=== PATIENT | male | born 1970 | race Caucasian/White ===

== ENCOUNTER 2022-09-02 08:44 | Outpatient (CLI) | payer BC, SELFPAY ==
[2022-09-02 14:01] LABS: Basophils Absolute Auto 0.05 K/uL (0.00-0.30); Basophils Percent Auto 0.9 % (0.0-3.0); Eosinophils Absolute Auto 0.15 K/uL (0.00-0.50); Eosinophils Percent Auto 2.6 % (0.0-7.0); Hematocrit 42.1 % (37.0-53.0); Hemoglobin* 13.5 gm/dL (13.5-17.5); Lymphocytes Absolute Auto 1.88 K/uL (0.90-2.90); Lymphocytes Percent Auto 33.1 % (20-44); Mean Corpuscular HGB Conc 32 gm/dL (32-36); Mean Corpuscular Hemoglobin 31 pg (26-34); Mean Corpuscular Volume 97 fL (80-100); Neutrophils Absolute Auto 3.03 K/uL (1.7-7.0); Neutrophils Percent Auto 53.4 % (42.0-72.0); Platelet Count* 380 K/uL (140-440); RDW Coefficient of Variation % 12.2 % (11.5-15.5); Red Blood Count 4.35 m/uL (4.30-5.90); White Blood Count* 5.68 K/uL (4.50-11.00)
[2022-09-02 14:05] LABS: Slide Review Reflex No
[2022-09-02 14:49] LABS: Chloride* 105 mmol/L (96-114); Potassium* 4.2 mmol/L (3.6-5.1); Sodium* 140 mmol/L (135-149)
[2022-09-02 14:52] LABS: Blood Urea Nitrogen* 22 mg/dL (7-30); Carbon Dioxide* 28 mmol/L (20-32); Estimated Glomerular Filt Rate 91 ml/min
[2022-09-02 14:53] LABS: Calcium* 9.4 mg/dL (8.4-10.6); Glucose* 89 mg/dL (60-115)
[2022-09-02 14:57] LABS: NT Pro B Type NatriureticPept* 177 PG/mL (0-125)
== END 2022-09-02 08:45 | disposition home or self-care (01) ==
PROVIDERS: PCP Family Medicine; Visit Provider Family Medicine
DX: Z01.818 Encounter for other preprocedural examination (principal); I42.9 Cardiomyopathy, unspecified; I50.9 Heart failure, unspecified; I10 Essential (primary) hypertension
CPT/HCPCS: 80048; 83880; 85025

== ENCOUNTER 2022-09-08 09:55 | Outpatient (CLI) | payer BC, SELFPAY ==
[2022-09-08 14:40] LABS: SARS PCR* Negative SARS-CoV-2 (Negative)
== END 2022-09-08 09:56 | disposition home or self-care (01) ==
LOC: FBOREF 09:56
PROVIDERS: PCP Family Medicine; Visit Provider Family Medicine
DX: Z20.822 Contact with and (suspected) exposure to COVID-19 (principal)
CPT/HCPCS: 87635

== ENCOUNTER 2023-01-07 14:18 | Outpatient (CLI) | payer BC, SELFPAY | END 2023-01-07 14:19 | disposition home or self-care (01) | PROVIDERS: PCP Family Medicine; Visit Provider Nurse Practitioner Family | DX: R53.83 Other fatigue (principal); I10 Essential (primary) hypertension; L03.90 Cellulitis, unspecified | CPT/HCPCS: 80053; 82607; 82728 ==

== ENCOUNTER 2023-01-26 08:39 | Outpatient (CLI) | payer BC, SELFPAY ==
[2023-01-26 14:24] LABS: Basophils Absolute Auto 0.04 K/uL (0.00-0.30); Basophils Percent Auto 0.5 % (0.0-3.0); Eosinophils Absolute Auto 0.43 K/uL (0.00-0.50); Eosinophils Percent Auto 4.9 % (0.0-7.0); Hematocrit 33.1 % (37.0-53.0); Hemoglobin* 10.4 gm/dL (13.5-17.5); Immature Granulocytes Abs Auto 0.01 K/uL (0.00-0.30); Immature Granulocytes Pct Auto 0.1 %; Immature Reticulocyte Fraction 16.8 % (2.3-13.4); Lymphocytes Absolute Auto 2.99 K/uL (0.90-2.90); Lymphocytes Percent Auto 34.1 % (20-44); Mean Corpuscular HGB Conc 31 gm/dL (32-36); Mean Corpuscular Hemoglobin 29 pg (26-34); Mean Corpuscular Volume 93 fL (80-100); Monocytes Percent Auto 12.3 % (0.0-11.0); Neutrophils Absolute Auto 4.21 K/uL (1.7-7.0); Neutrophils Percent Auto 48.1 % (42.0-72.0); Platelet Count* 393 K/uL (140-440); RDW Coefficient of Variation % 15.7 % (11.5-15.5); Red Blood Count 3.56 m/uL (4.30-5.90); Reticulocyte Hemoglobin Equivi 33.3 pg (29.0-35.0); Reticulocyte Percent 2.2 % (0.5-2.0); Reticulocytes Absolute 0.08 # (0.03-0.08); White Blood Count* 8.76 K/uL (4.50-11.00)
[2023-01-26 14:42] LABS: Slide Review Reflex No
== END 2023-01-26 08:40 | disposition home or self-care (01) ==
PROVIDERS: PCP Family Medicine; Visit Provider Family Medicine
DX: D64.9 Anemia, unspecified (principal); R53.83 Other fatigue; I10 Essential (primary) hypertension; Z13.6 Encounter for screening for cardiovascular disorders
CPT/HCPCS: 80048; 80061; 85025; 85045

== ENCOUNTER 2023-05-05 11:25 | Outpatient (CLI) | payer BC, SELFPAY ==
--- OUTSIDE RECORDS SUMMARY | 2023-05-05 11:28 | XMS_ITS | Continuity of Care Document ---
Author Name Unknown Organization [facility] Address [address] [place] [address] Phone Care Team Providers Care Community Aide Name Role Phone Bogdan Michael MD Unavailable Unavailable Allergies, Adverse Reactions, Alerts Substance Reaction Status Criticality No Known Allergies Active No Inform ation Medications Medication Instructions Dosage Effective Dates (start - stop) Status Comments hydrocodone 5 mg-acetaminophen 325 mg tablet Take 1 tablet by mouth every 6 hours as needed for post op pain (G89.18) - Active Written on behalf of Dr Bogdan Michael gabapentin 300 mg capsule TAKE two CAPSULE BY MOUTH DAILY FOR 3 DAYS, THEN INCREASE TO two CAPSULE TWICE DAILY FOR 3 DAYS, THEN INCREASE TO TWO CAPSULE THREE TIMES DAILY. - Active ok to dispense 600 mg caps if needed hydrocodone 10 mg-acetaminophen 325 mg tablet take 1 tablet by mouth every 6-8 hours s needed for post op pain (G89.18) - Active Written on behalf of Dr Bogdan Michael cyclobenzaprine 10 mg tablet take 1 tablet by oral route every 8 hours as needed for muscle spasms - Active cyclobenzaprine 10 mg tablet take 1 tablet by mouth every 8 hours as needed for muscle spasms - Active prednisone 5 mg tablet Take 2 tablets by mouth BID x 7 days, then 1 tab TID x 7 days, then 1 tab BID x 7 days then 1 tab QD x 7 days then DC - Active SUBOXONE (unknown strength) Not Available - Active MULTIVITAMINS (unknown strength) Not Available - Active ENTRESTO (unknown strength) Not Available - Active SPIRONOLACTONE (unknown strength) Not Available - Active FARXIGA (unknown strength) Not Available - Active CARVEDILOL (unknown strength) Not Available - Active Procedures Procedure Date Office/Outpatient Visit,Est, Mod 2022 Postop Followup Visit Postop Followup Visit X Ray Exam Entire Spine 2/3 VW 23 PSF, Lumbar - PA PSF - Additional Level(s) - PA 22 Posterior Instrumentation, 7-12 Segments - PA Iliac Bolts / Pelvic Fixation - PA PEEK/ Cage/ Implant, For Interbody Fusio n - PA Autograft, From Same Incision Pa Assist PSF, Lumbar PSF - Additional Level(s) Anterior Interbody Fusion - Additional L evel(s) Posterior Instrumentation, 7-12 Segments Iliac Bolts / Pelvic Fixation 2 PEEK/ Cage/ Implant, For Interbody Fusio n Allograft, Morcelized, and/or BMP Autograft, From Same Incision 2 ALIF / OLIF Anterior Lumbar Interbody Fu shanel - Cosurgeon Office/Outpatient Visit,Est, Mod 2021 Office/Outpatient Visit,Est, Mod 2021 Office/Outpatient Visit,Est, Mod 2020 X Ray Exam Entire Spine 2/3 VW 21 Office/Outpatient Visit,New, Mod 2020 Advance Directives Directive Yes / No Effective Date File Name No Information Encounters Encounter Description Practice Location Reason(s) For Visit Diagnoses Date Provider Providers Copied on Encounter [facility], [address], [place], [place], [id number] , [place] tel:[phone] [facility] No Information 3 Fernanda Mcfadden. [facility], [address] [place] [address], [address], [place], [place], [address] , [place]. tel: [phone] Office/Outpa tient Visit,Est, Mod [facility], [address], [place], [place], [id number] , [place] tel: [phone] [facility] [place] Encounter for other specified surgical aftercare 3 Michael Bogdan. [facility] [place], [address] [place] [address], [address], [place], [place], [address] , [place]. tel: [phone] Referring Provider: Yoseph Grijalva, [facility] [address] [place], [address]. tel:[phone] [facility], [address], [place], [place], [id number] , [place] tel: [phone] [facility] No Information 3 Michael Bogdan. [facility], [address] [place] [address], [address], [place], [place], [address] , [place]. tel: [phone] [facility], [address], [place], [place], [address] , [place] tel: [phone] [facility] Encounter for other specified surgical aftercare 3 Michael Bogdan. [facility], [address] [place] [address], [address], [place], [place], [address] , [place]. tel: [phone] Referring Provider: [facility] [place] [address] [place], [address]. tel:[phone] [facility], [address], [place], [place], [address] , [place] tel: [phone] [facility] Draft No Information 3 Michael Bogdan. [facility], [address] [place] [address], [address], [place], [place], [address] , [place]. tel: [phone] [facility], [address], [place], [place], [address] , [place] tel: [phone] [facility] No Information 3 Mehbod Amir. [facility], [address], [place], [place], [address] , [place]. tel: [phone] [facility], [address], [place], [place], [address] , [place] tel: [phone] [facility] Encounter for other specified surgical aftercare 3 Michael Bogdan. [facility] [place], [address], [address], [place], [place], [address] , [place]. tel: [phone] Referring Provider: [facility] [place] [address] [place], [address]. tel:[phone] [facility], [address], [place], [place], [address] , [place] tel: [phone] [facility] No Information 2 Panvica Edgardo. [facility] [place], [address], [address], [place], [place], [address] , [place]. tel: [phone] Referring Provider: Yoseph Grijalva, [facility] [address] [place], [address]. tel:[phone] [facility], [address], [place], [place], [address] , [place] tel: [phone] [facility] No Information 2 Michael Bogdan. [facility] [place], [address], [address], [place], [place], [address] , [place]. tel: [phone] Referring Provider: [facility] [place] [address] [place], [address]. tel:[phone] Office/Outpa tient Visit,Est, Mod [facility], [address], [place], [place], [address] , [place] tel: [phone] [facility] [place] Other idiopathic scoliosis, lumbar region 2 Michael Bogdan. [facility] [place], [address], [address], [place], [place], [address] , [place]. [phone] Referring Provider: Yoseph Grijalva, [facility] [address] [place], [address]. tel:[phone] Office/Outpa tient Visit,Est, Mod [facility], [address], [place], [place], [address] , [place] tel:[phone] [facility] Other idiopathic scoliosis, lumbar regionCurvature of spineSpinal stenosis, lumbar region with neurogenic claudicationSpin al stenosis, lumbosacral region February- 2 Michael Bogdan. [facility], [address] [place] [address], [address], [place], [place], [address] , [place]. [phone] Referring Provider: Yoseph Grijalva, [facility] [address] [place], [address]. tel:[phone] Office/Outpa tient Visit,Est, Mod [facility], [address], [place], [place], [address] , [place] tel:[phone] [facility] Other forms of scoliosis, lumbar regionOther forms of scoliosis, thoracic region Dec-0 9 1 Michael Bogdan. [facility], [address] [place] [address], [address], [place], [place], [address] , [place]. tel:[phone] Referring Provider: Yoseph Grijalva, [facility] [address] [place], [address]. tel:[phone] Office/Outpa tient Visit,New, Mod [facility], [address], [place], [place], [address] , [place] tel:[phone] [facility] Other forms of scoliosis, thoracic regionOther forms of scoliosis, lumbar region Feb-1 8 1 Panvica Edgardo. [facility] [place], [address] [place] [address], [address], [place], [place], [address] , [place]. tel:[phone] Referring Provider: Yoseph Grijalva, [facility] And [address], [address]. tel:[phone] Family History Family Member Type Diagnosis Age At Onset No Information Payers Payer name Insurance type Covered constitution party ID Dave troncoso(s) [facility] [id number] [facility] [id number] Social History Type Description Quantity Date Captured Comments Sex Male Smoking Status No Information Chief Complaint And Reason For Visit No Information Reason For Referral Reason For Referral No Information Plan Of Treatment Date Type Action Status Appointment Jesse Arroyo BOOKED Appointment Jesse Arroyo BOOKED Appointment Jesse Arroyo BOOKED Appointment Jesse Arroyo BOOKED History Of Present Illness Encounter Date Complaint History Of Prese nt Illness No Information Functional Status Date Functional Assessmen t No Information Instructions Date Instruction Additional Infor mation No Information Assessments Type Assessment Date No Information Patient Care Teams Name Effective Dates (start - stop) Status Members No Information
== END 2023-05-05 11:26 | disposition home or self-care (01) ==
PROVIDERS: PCP Family Medicine; Visit Provider Family Medicine
DX: I95.9 Hypotension, unspecified (principal); D64.9 Anemia, unspecified; R53.1 Weakness
CPT/HCPCS: 80048; 83735; 85025

== ENCOUNTER 2023-09-02 09:29 | Outpatient (CLI) | payer BC, SELFPAY | END 2023-09-02 09:30 | disposition home or self-care (01) | PROVIDERS: PCP Family Medicine; Visit Provider Family Medicine | DX: I10 Essential (primary) hypertension (principal) | CPT/HCPCS: 80048; 85025 ==

== ENCOUNTER 2024-03-24 08:05 | Outpatient (CLI) | payer BC, SELFPAY ==
--- OUTSIDE RECORDS SUMMARY | 2024-03-24 11:34 | XMS_ITS | Clinical Summary ---
Author Organization [facility] Address [place], [place] [address] Care Team Providers Care Sustainable Agriculture Specialist Name Role Phone Yoseph Grijalva MD Primary Care Provider + [facility] Care, [place] Unavailable [phone] Allergies Active Allergy Reactions Criticality Noted Date Comments Blood-Group Specific Substance Other - Describe In Comment Field 09/14/2023 Patient has an Anti-Big E, Anti-Jkb, Anti-little s and Non Specific antibody. Blood products may be delayed. Draw patient 24 hours prior to transfusion. For [facility] testing, draw one red top and two purple top tubes for all Type and Screen orders. Medications Medication Sig Dispensed Refills Start Date End Date Status sildenafil citrate (VIAGRA) 100 mg tablet Take 50-100 mg by mouth once daily if needed for Erectile Dysfunction. Active carvediloL (Coreg) 6.25 mg tabletIndications:No nischemic dilated cardiomyopathy (HC),HTN (hypertension) Take 1 Tablet (6.25 mg) by mouth two times daily. 180 Tablet 3 06/22/2023 Active valsartan (DIOVAN) 40 mg tabletIndications:No nischemic dilated cardiomyopathy (HC),HTN (hypertension) Take 1 Tablet (40 mg) by mouth two times daily. 180 Tablet 3 06/22/2023 Active buprenorphine-naloxo ne, 8 mg-2 mg, (SUBOXONE) (8-2 mg/tablet) sublingual tablet Place 3 Tablets under the tongue once daily. Active acetaminophen (TYLENOL EXTRA STRGTH) 500 mg tabletIndications:Sp inal stenosis of lumbosacral region Take 2 Tablets (1,000 mg) by mouth three times daily. Max acetaminophen dose: 4000mg in 24 hrs. 60 Tablet 09/13/2023 Active methocarbamoL (ROBAXIN) 750 mg tabletIndications:[place] postoperative pain Take 1 Tablet (750 mg) by mouth every 6 hours. 20 Tablet 09/13/2023 Active oxyCODONE (ROXICODONE) 5 mg immediate release tabletIndications:[place] postoperative pain Take 1-3 Tablets (5-15 mg) by mouth every 4 hours if needed for Pain. 20 Tablet 09/13/2023 Active Active Problems Problem Noted Date Diagnosed Date Idiopathic scoliosis in adult patient 09/10/2023 Methamphetamine abuse in remission 09/10/2023 Opioid dependence in remission 09/10/2023 Spinal stenosis of lumbosacral region 09/10/2023 Acute postoperative pain 09/10/2023 Nonischemic dilated cardiomyopathy 05/02/2023 Overview: 01/2022: In the setting of past alcohol and methamphetamine abuse and current tobacco abuse. Initially with HFrEF. Responded well to therapy and left ventricular ejection fraction normalized. Follows with [facility]. Chronic pain 05/02/2023 Hypovolemia associated with diuresis 05/02/2023 Personality traits affecting medical condition 0 05/01/2023 Metabolic acidosis 05/01/2023 Hypotension 05/01/2023 Bradycardia 05/01/2023 Hyperkalemia 05/01/2023 Rhabdomyolysis 05/01/2023 Erectile dysfunction 05/01/2023 Anxiety 05/01/2023 Dehydration 05/01/2023 Opioid Dependence in remission 04/03/2009 Hypertension Resolved Problems Problem Noted Date Diagnosed Date Resolved Date Acute renal failure (ARF) 05/01/2023 History of congestive heart failure 05/01/2023 05/01/2023 HFrEF (heart failure with re duced ejection fraction) 05/01/2023 05/02/2023 SUSY (acute kidney injury) 05/01/2023 Pain medication agreement 09/19/2013 Overview: Suboxone Neck pain 03/06/2013 05/01/2023 Lumbago 05/09/2007 05/01/2023 Degeneration of lumbar or esthela mbosacral intervertebral disc 05/09/2007 05/02/2023 Acute systolic heart failure 05/01/2023 Spinal stenosis of lumbosacral region 05/02/2023 DDD (degenerative disc disease), lumbosacral 05/01/2023 Idiopathic scoliosis in adult patient 05/02/2023 Encounters Date Type Department Care Team Description 03/21/2024 2:00 PM CDT - 03/21/2024 11:59 PM CDT Hospital Encounter [facility] [address] [place] [address] Edgardo Talley PA Back pain 03/21/2024 Travel 02/11/2024 Telephone [facility] [place] [facility] [place] [address] [facility] [address] [place] [address] Tom Moses MD Blood Pressure from Last 3 Months Immunizations Name Administration Dates Next Due DTaP 02/11/1976 Influenza RIV4 (Age 18+ Years) PRESERV FREE 08/06 Influenza, IIV3 (Age 6-35 mos) 09/22/2012 Influenza, IIV3 (Age >=3 years) 09/25/2013 Pneumococcal Poly,23-Valent (Pneumovax) 09/22/20 12 Polio Virus, Unspecified 01/30/1977,02/11/1976 Tdap 10/15/2020,09/22/2012 Family History Medical History Relation Name Comments Heart Disease Maternal Grandfather Heart Disease Maternal Grandmother Relation Name Status Comments Father Alive Maternal Grandfather Maternal Grandmother Mother Alive Social History Tobacco Use Types Packs/Day Years Used Date Smoking Tobacco: Former Cigarettes Q uit: 10/07/2021 Smokeless Tobacco: Former Tobacco Cessation:Counseling Given: Not Answered Alcohol Use Standard Drinks/Week Comments Yes 1 (1 standard drink = 0.6 oz pur e alcohol) Very rare PHQ-2 Answer Date Recorded PHQ-2 TOTAL SCORE 0 04/28/2022 Social Connections Answer Date Recorded Frequency of Communication with Friends and Fami ly Not on file 01/16/2022 Sex and Gender Information Value Date Recorded Sex Assigned at Not on file Gender Identity Not on file Sexual Orientation Not on file Obstetrics History Last Filed Vital Signs Vital Sign Reading Time Taken Comments Blood Pressure 130/91 09/13/2023 8:37 AM ELECTRODE CLEANER Pulse 70 09/13/2023 8:37 AM ELECTRODE CLEANER Temperature 37.2 ??C (99 ??F) 09/13/2023 8:37 AM ELECTRODE CLEANER Respiratory Rate 16 09/13/2023 8:37 AM ELECTRODE CLEANER Oxygen Saturation 96% 09/13/2023 8:37 AM ELECTRODE CLEANER Inhaled Oxygen Concentration - - Weight 81.1 kg (178 lb 14.4 oz) 09/10/2023 7:10 AM ELECTRODE CLEANER Height 195.6 cm (6' 5) 09/10/2023 7:10 AM ELECTRODE CLEANER Body Mass Index 21.21 09/10/2023 7:10 AM ELECTRODE CLEANER Plan of Treatment Health Maintenance Due Date Last Done Comments Hepatitis C screening for ag e 18-79 1988 Pneumococcal series for age 6-64 (2 of 2 - PCV) 09/22/2013 09/22/2012 Colonoscopy through age 75 2015 Zoster (shingles) series for age 50+ (1 of 2) 2020 BMI (ht and wt on same day) for age 18+ 04/20/2023 04/20/2022, 03/27/2022, 01/16/2022 Depression screening for age 12+ 04/24/2023 04/24/2022, 04/22/2022, 02/02/2022, Additional history exists COVID-19 vaccine series ( season) 2023 08/24/2021, 08/03/2021 Influenza for age 50-64 06/04/2024 09/02/2022, 09/25 Lipids for age 45-75 01/06/2027 01/06/2022, 09/05/2012, 04/20/2011, Additional history exists Tetanus booster 10/15/2030 10/15/2020, 09/22/2012 Tdap Completed 10/15/2020, 09/22/2012 HIV for age 15-65 Completed 01/06/2022 Medical Devices Implanted Type Area Exhibits Manager Device Identifier Shelf Expiration Date Model / Serial / Lot [id number] one Matrix 1x10cm Hewitt Strip Dbm Implanted:Qty: 1 on 09/11/2022 by Bogdan Michael MD at [facility] Explanted:at [facility] (Quantity not on file) N/A: Spine Medtronic Spine/Ortho 10/10/2024 [id number] / [id number] / Screw Lmbr Post 7.5x40mm Solera 5.5/6 Va Cocr - [id number] Implanted:Qty: 2 on 09/11/2022 by Bogdan Michael MD at [facility] N/A: Spine Medtronic Spine/Ortho [id number] / / Screw Lmbr Post 7.5x45mm Solera 5.5/6 Va Cocr - [id number] Implanted:Qty: 3 on 09/11/2022 by Bogdan Michael MD at [facility] N/A: Spine Medtronic Spine/Ortho [id number] / / Barbara Lmbr 500x5.5mm Solera 5.5/6 Stra Titnm Alloy - [id number] Implanted:Qty: 2 on 09/11/2022 by Bogdan Michael MD at [facility] N/A: Spine Medtronic Spine/Ortho [id number] / / Screw Lmbr Post 6.5x45mm Solera 5.5/6 Va Cocr - [id number] Implanted:Qty: 8 on 09/11/2022 by Bogdan Michael MD at [facility] N/A: Spine Medtronic Spine/Ortho [id number] / / Set Screw Lmbr Std Barbara Connection Titnm - [id number] Implanted:Qty: 1 on 09/11/2022 by Bogdan Michael MD at [facility] N/A: Spine Medtronic Spine/Ortho [id number] / / Screw Lmbr 5.5x25mm Endo Skeleton Tas Bone Alif Stand Alone - [id number] Implanted:Qty: 3 on 09/11/2022 by Bogdan Michael MD at [facility] N/A: Spine Medtronic Spine/Ortho [id number] / / Screw Lmbr 5.5x30mm Endo Skeleton Tas Bone Alif Stand Alone - [id number] Implanted:Qty: 2 on 09/11/2022 by Bogdan Michael MD at [facility] N/A: Spine Medtronic Spine/Ortho [id number] / / Screw Lmbr 6.5x30mm Endo Skeleton Tas Bone Alif Stand Alone - [id number] Implanted:Qty: 3 on 09/11/2022 by Bogdan Michael MD at [facility] N/A: Spine Medtronic Spine/Ortho [id number] / / Bone Matrix Lg Infuse Bmp - [id number] Implanted:Qty: 1 on 09/11/2022 by Bogdan Michael MD at [facility] N/A: Spine Medtronic Spine/Ortho 10/03/2024 [id number] / / [id number] Screw Bs Cncmas 9.5x80 T/C Implanted:Qty: 2 on 09/11/2022 by Bogdan Michael MD at [facility] N/A: Spine [id number] / / Description:SCREW BS CNCMAS 9.5X80 T/C [id number] one Matrix 1x10cm Carlos Strip Dbm Implanted:Qty: 1 on 09/11/2022 by Bogdan Michael MD at [facility] Explanted:at [facility] (Quantity not on file) N/A: Spine Medtronic Spine/Ortho 11/23/2024 [id number] / [id number] / Connector 5/6-6.0 Clsd Lat 25 Implanted:Qty: 1 on 09/11/2022 by Bogdan Michael MD at [facility] N/A: Spine [id number] / / Description:CONNECTOR 5/6-6. 0 CLSD LAT 25 Lillie Spacer Tas 7 Dg Lg 12mm Implanted:Qty: 1 on 09/11/2022 by Bogdan Michael MD at [facility] N/A: Spine 11/14/2026 [id number] / / [id number] Description:LILLIE SPACER TAS 7 DG LG 12MM Lillie Spacer Tas 12dg Lg 14mm Implanted:Qty: 1 on 09/11/2022 by Bogdan Michael MD at [facility] N/A: Spine 11/25/2025 [id number] / / [id number] Description:LILLIE SPACER TAS 12DG LG 14MM Lillie Spacer Tas 12dg Lg 16mm Implanted:Qty: 1 on 09/11/2022 by Bogdan Michael MD at [facility] N/A: Spine 04/08/2026-N / / [id number] Description:LILLIE SPACER TAS 12DG LG 16MM Lillie Spacer Tas 12dg Lg 16mm Implanted:Qty: 1 on 09/11/2022 by Bogdan Michael MD at [facility] N/A: Spine 09/03/2026-N / / [id number] Description:LILLIE SPACER TAS 12DG LG 16MM [id number] one Matrix 1x10cm Hewitt Strip Dbm Implanted:Qty: 1 on 09/11/2022 by Bogdan Michael MD at [facility] Explanted:at [facility] (Quantity not on file) N/A: Spine Medtronic Spine/Ortho 11/30/2024 [id number] / [id number] / [id number] one 1-4mm 90cc Medtronic Chips Canclls Freeze Dried Implanted:Qty: 1 on 09/11/2022 by Bogdan Michael MD at [facility] Explanted:at [facility] (Quantity not on file) N/A: Spine Medtronic Spine/Ortho 09/28/2026 [id number] / [id number] / [id number] one 1-4mm 90cc Medtronic Chips Canclls Freeze Dried Implanted:Qty: 1 on 09/11/2022 by Bogdan Michael MD at [facility] Explanted:at [facility] (Quantity not on file) N/A: Spine Medtronic Spine/Ortho 09/28/2026 [id number] / [id number] / [id number] one 1-4mm 30cc Medtronic Chips Canclls Freeze Dried Implanted:Qty: 1 on 09/11/2022 by Bogdan Michael MD at [facility] Explanted:at [facility] (Quantity not on file) N/A: Spine Medtronic Spine/Ortho 07/21/2026 [id number] / [id number] / [id number] one 1-4mm 90cc Medtronic Chips Canclls Freeze Dried Implanted:Qty: 1 on 09/11/2022 by Bogdan Michael MD at [facility] Explanted:at [facility] (Quantity not on file) N/A: Spine Medtronic Spine/Ortho 09/30/2026 [id number] / [id number] / [id number] one 1-4mm 90cc Medtronic Chips Canclls Freeze Dried Implanted:Qty: 1 on 09/11/2022 by Bogdan Michael MD at [facility] Explanted:at [facility] (Quantity not on file) N/A: Spine Medtronic Spine/Ortho 10/01/2026 [id number] / [id number] / Set Screw Lmbr Ant 5.5mm Solera Break Off - [id number] Implanted:Qty: 15 on 09/11/2022 by Bogdan Michael MD at [facility] N/A: Spine Medtronic Spine/Ortho [id number] / / Bone 1-4mm 60cc Medtronic Fine Canclls Freeze Dried - [id number] Implanted:Qty: 1 on 09/10/2023 by Bogdan Michael MD at [facility] N/A: Spine Medtronic Spine/Ortho 01/01/2027 [id number] / [id number] / Cnnctr Lmbr 5.5x5.5mm Barbara Connect Variable Titnm [place] - [id number] Implanted:Qty: 4 on 09/10/2023 by Bogdan Michael MD at [facility] N/A: Spine Medtronic Spine/Ortho [id number] / / Set Screw Lmbr Std Barbara Connection Titnm - [id number] Implanted:Qty: 8 on 09/10/2023 by Bogdan Michael MD at [facility] N/A: Spine Medtronic Spine/Ortho [id number] / / Set Screw Lmbr Ant 5.5mm Solera Break Off - [id number] Implanted:Qty: 2 on 09/10/2023 by Bogdan Michael MD at [facility] N/A: Spine Medtronic Spine/Ortho [id number] / / Barbara Lmbr 110x5.5mm Solera 5.5/6 Cvd Titnm - [id number] Implanted:Qty: 1 on 09/10/2023 by Bogdan Michael MD at [facility] N/A: Spine Medtronic Spine/Ortho [id number] / / Barbara Lmbr 90x5.5mm Solera 5.5/6 Cvd Titnm - [id number] Implanted:Qty: 1 on 09/10/2023 by Bogdan Michael MD at [facility] N/A: Spine Medtronic Spine/Ortho [id number] / / Barbara Lmbr 70x5.5mm Solera 5.5/6 Cvd Titnm - [id number] Implanted:Qty: 1 on 09/10/2023 by Bogdan Michael MD at [facility] N/A: Spine Medtronic Spine/Ortho [id number] / / Barbara Lmbr 50x5.5mm Solera 5.5/6 Cvd Titnm - [id number] Implanted:Qty: 1 on 09/10/2023 by Bogdan Michael MD at [facility] N/A: Spine Medtronic Spine/Ortho [id number] / / Explanted Type Area Exhibits Manager Device Identifier Shelf Expiration Date Model / Serial / Lot Explant Explanted:Qty: 8 on 09/10/2023 at [facility] N/A: Spine Description:BARBARA X2 SCREW X3 SET SCREW X3 Procedures Procedure Name Priority Date/Time Associated Diagnosis Comments XR SPINE LUMBAR MINIMUM 4 VIEWS Routine 03/21/2024 2:27 PM CDT Back pain ANTI HIV 1/2 JORDYN 01/06/2022 7:29 AM CDT LIPID PANEL Early AM 01/06/2022 7:29 AM CDT from Last 3 Months or Most Recently Relevant to Health Maintenance Results * XR SPINE LUMBAR MINIMUM 4 VIEWS (03/21/2024 2:27 PM CDT) Anatomical Region Laterality Modality Spine, LUMBAR SPINE Computed Rad iography Narrative 03/21/2024 2:27 PM CDT Report is available in patient chart at [facility]. [facility] * ANTI HIV 1/2 (01/06/2022 7:29 AM CDT) HIV-1/HIV-2 ANTIBODY Non-Reacti ve Non-Reacti ve 01/06/2022 11:11 AM CDT [facility] Comment:HIV-1 p24 and HIV-1/ HIV-2 Ab not detected. Blood BLOOD SPECIMEN / Unknown Venipuncture / Unknown 01/06/2022 7:29 AM CDT 01/06/2022 8:14 AM CDT Jefe Sam MD SEND OUTS [facility] [address] [place] [address], * Lipid Panel AM (01/06/2022 7:29 AM CDT) CHOLESTEROL,TOTAL 154 100 - 199 mg/dL 01/06/2022 8:51 AM [facility] TRIGLYCERIDES 72 <150 mg/dL 01/06/2022 8:51 AM CDT [facility] HDL CHOLESTEROL 65 >40 mg/dL 8:51 AM CDT [facility] NON-HDL CHOLESTEROL 89 <145 mg/dl 01/06/2022 8:51 AM CDT [facility] CHOL/HDL RATIO 2.37 <4.50 01/06/2022 8:51 AM CDT [facility] LDL CHOLESTEROL 75 <=130 mg/dL 01/06/2022 8:51 AM CDT [facility] VLDL CHOLESTEROL 14 <=30 mg/dL 01/06/2022 8:51 AM CDT [facility] PROVIDER ORDERED STATUS RANDOM 01/06/2022 8:51 AM CDT [facility] Blood BLOOD SPECIMEN / Unknown Venipuncture / Unknown 01/06/2022 7:29 AM CDT 01/06/2022 8:14 AM CDT Cody David MD CHEMISTRY [facility] [address] [place] [address], from Last 3 Months or Most Recently Relevant to Health Maintenance Advance Directives Documents on File Type Date Recorded Patient [place] Headgate Operator Expl anation Power of Glass Pulverizer Equipment Operator 03/04/2022 03/04/2022 Healthcare Directive 03/04/2022 022 * Full Code (Latest Code Status on File) Date Activated Date Inactivated Comments 09/10/2023 5:52 PM 09/13/2023 2:21 PM Question Answer Comments Code Status Discussion: Reviewed Preferences * Full Code Date Activated Date Inactivated Comments 05/01/2023 8:12 PM 05/02/2023 4:36 PM Question Answer Comments Code Status Discussion: Reviewed Preferences * Full Code Date Activated Date Inactivated Comments 09/11/2022 10:14 PM 09/15/2022 5:37 PM Question Answer Comments Code Status Discussion: Reviewed Preferences * Full Code Date Activated Date Inactivated Comments 01/05/2022 4:59 PM 01/07/2022 6:00 PM Question Answer Comments Code Status Discussion: Other Care Teams Sustainable Agriculture Specialist Relationship Specialty Start Date End Date Yoseph Grijalva MD [address] [place] [address] PCP - General Family Practice 02/02/[address] [address] 09/13/23
--- OUTSIDE RECORDS SUMMARY | 2024-03-24 11:34 | XMS_ITS | Continuity of Care Document ---
Author Organization [facility] Address [address] [place] [address] Phone Care Team Providers Care Regulatory Scientist Name Role Phone Mayank PAULA Edgardo Unavailable Unavailable Allergies, Adverse Reactions, Alerts Substance Reaction Status Criticality No Known Allergies Active No Inform ation Medications Medication Instructions Dosage Effective Dates (start - stop) Status Comments oxycodone 5 mg tablet Take 1-3 tablets b y mouth every 4-6 hours as needed for post op pain (G89.18) - Active CARVEDILOL (unknown strength) Not Available - Active FARXIGA (unknown strength) Not Available - Active SPIRONOLACTONE (unknown strength) Not Available - Active ENTRESTO (unknown strength) Not Available - Active MULTIVITAMINS (unknown strength) Not Available - Active SUBOXONE (unknown strength) Not Available - Active Procedures Procedure Date Office/Outpatient Visit,Est, Mod 2023 X Ray Exam Entire Spine 2/3 VW Office/Outpatient Visit,Est, Mod 2023 Postop Followup Visit X Ray Exam Entire Spine 2/3 VW PSO / 3-column Osteotomy, Lumbar - PA De PSF, Lumbar - PA PSF - Additional Level(s) - PA 23 Reinsertion of Instrumentation - PA PSO / 3-column Osteotomy, Lumbar 2022 PSF, Lumbar PSF - Additional Level(s) Reinsertion of Instrumentation 23 Allograft, Morcelized, and/or BMP Office/Outpatient Visit,Est, Mod 2022 Postop Followup Visit Postop Followup Visit X Ray Exam Entire Spine 2/3 VW 23 PSF, Lumbar - PA PSF - Additional Level(s) - PA Posterior Instrumentation, 7-12 Segments - PA Iliac Bolts / Pelvic Fixation - PA Sep- PEEK/ Cage/ Implant, For Interbody Fusio n [...] Diagnoses Date Provider Providers Copied on Encounter Office/Outpa tient Visit,Est, Mod [facility], [address], [place], [id number] , [place] tel:[phone] [facility] Encounter for other specified surgical aftercare 4 Mayank Reynoso. [facility], [address], [address], [place], [id number] , [place]. tel:[phone] Referring Provider: Yoseph Grijalva, [facility] [address] [place], [address]. tel:[phone] Office/Outpa tient Visit,Est, Mod [facility], [address], [place], [place], [address] , [place] tel: [phone] [facility] Encounter for other specified surgical aftercare 4 Panvica Edgardo. [facility], [address], [address], [place], [place], [address] , [place]. tel:[phone] Referring [facility]: [facility] [address] [place], [address]. tel:[phone] [facility], [address], [place], [place], [address] , [place] tel: [phone] [facility] Encounter for other specified surgical aftercare 4 Michael Bogdan. [facility], [address], [address], [place], [place], [address] , [place]. [phone] Referring Provider: Yoseph Grijalva, [facility] [address] [place], [address]. [phone] [facility], [address], [place], [place], [address] , [place] tel: [phone] [facility] No Information 3 Panvica Edgardo. [facility], [address], [address], [place], [place], [address] , [place]. [phone] Referring Provider: [facility] [address] [place], [address]. tel:[phone] [facility], [address], [place], [place], [address] , [place] tel:[phone] [facility] No Information 3 Mihcael Bogdan. [facility], [address], [address], [place], [place], [address] , [place]. tel:[phone] [facility], [address], [place], [id number] , [place] tel: [phone] [facility] No Information 3 Michael Bogdan. [facility], [address], [address], [facility] [place], [id number] , [place]. tel:[phone] Referring Provider: [facility] [address] [place], [address]. tel:[phone] Office/Outpa tient Visit,Est, Mod [facility], [address], [facility] [place], [address] , [place] tel:[phone] [facility] Encounter for other specified surgical aftercare 0 3 Michael Bogdan. [facility], [address], [address], [place], [place], [address] , [place]. tel:[phone] Referring Provider: Yoseph Grijalva, [facility] [address] [place], [address]. tel:[phone] [facility], [address], [facility] [place], [address] , [place] [phone] [facility] Encounter for other specified surgical aftercare 0 2 3 Michael Bogdan. [facility], [address], [address], [place], [place], [address] , [place]. [phone] Referring Provider: Yoseph Grijalva, [facility] [address] [place], [address]. tel:[phone] [facility], [address], [facility] [place], [address] , [place] [phone] [facility] Encounter for other specified surgical aftercare Oct- 3 Michael Bogdan. [facility], [address], [address], [place], [place], [address] , [place]. tel: [phone] Referring Provider: Yoseph Grijalva, [facility] [address] [place], [address]. tel:[phone] [facility], [address], [place], [place], [address] , [place] tel: [phone] [facility] No Information 2 Panvica Edgardo. [facility], [address], [address], [place], [place], [address] , [place]. tel: [phone] Referring Provider: [facility] [address] [place], [address]. tel:[phone] [facility], [address], [place], [place], [address] , [place] tel: [phone] [facility] No Information 2 Michael Bogdan. [facility], [address] [place] [address], [address], [place], [place], [address] , [place]. tel:[phone] Referring Provider: [facility] [address] [place], [address]. tel:[phone] Office/Outpa tient Visit,Est, Mod [facility], [address], [place], [place], [address] , [place] tel: [phone] [facility] Other idiopathic scoliosis, lumbar region 2 Michael Bogdan. [facility], [address], [address], [place], [place], [address] , [place]. tel:[phone] Referring Provider: [facility] [address] [place], [address]. [phone] Office/Outpa tient Visit,Est, Mod [facility], [address], [place], [place], [address] , [place] tel: [phone] [facility] Other idiopathic scoliosis, lumbar regionCurvature of spineSpinal stenosis, lumbar region with neurogenic claudicationSpin al stenosis, lumbosacral region 2 Michael Bogdan. [facility], [address], [address], [place], [place], [address] , [place]. tel:[phone] Referring Provider: Yoseph Grijalva, [facility] [address] [place], [address]. tel:[phone] Office/Outpa tient Visit,Est, Mod [facility], [address], [place], [address] , [place] [phone] [facility] Other forms of scoliosis, lumbar regionOther forms of scoliosis, thoracic region Dec- 1 Michael Bogdan. [facility], [address], [address], [place], [place], [address] , [place]. tel:[phone] Referring Provider: Yoseph Grijalva, [facility] [address] [place], [address]. tel:[phone] Office/Outpa tient Visit,New, Mod [facility], [address], [place], [place], [address] , [place] tel:[phone] [facility] [place] Other forms of scoliosis, thoracic regionOther forms of scoliosis, lumbar region Fe 1 Panvica Edgardo. [facility], [address] [place] [address], [address], [place], [place], [address] , [place]. tel:[phone] Referring Provider: Yoseph Grijalva, [facility] [address] [place], [address]. tel:[phone] Family History Family Member Type Diagnosis Age At Onset No Information Payers Payer name Insurance type Covered green party ID Authornoemia tipaz(s) [facility] [id number] [facility] [id number] Social History Type Description Quantity Date Captured Comments Alcohol Use Details Unknown Caffeine Use Details Unknown Tobacco Use Status No Information Smoking Status Former smoker Oscar-18-2024 Non-Smoking Tobacco Use Details : No Details Available : No Details Available Sex Male Vital Signs Date / Time: Height Weight BMI Pulse Rate Blood Pressure Temperature Respiratory Rate Body Surface Area Head Circumference Head Circ. Percentile Wt./Perry. Percentile BMI percentile Pulse Ox Inhaled Ox 2:09 PM 75.00 in 76.204 kg (168.00 lbs) 21.0 0 kg/m eter (2) Chief Complaint And Reason For Visit No Information Reason For Referral Reason For Referral No Information History Of Present Illness Encounter Date Complaint History Of Prese nt Illness No Information Functional Status Date Functional Assessmen t No Information Instructions Date Instruction Additional Infor mation No Information Assessments Type Assessment Date assessment Encounter for other specified allen rgical aftercare Patient Care Teams Name Effective Dates (start - stop) Status Members No Information
== END 2024-03-24 08:06 | disposition home or self-care (01) ==
PROVIDERS: PCP Family Medicine; Visit Provider Registered Nurse
DX: Z11.3 Encounter for screening for infections with a predominantly sexual mode of transmission (principal); R31.9 Hematuria, unspecified; R30.0 Dysuria
CPT/HCPCS: 80048; 82550; 87086; 87491; 87591

== ENCOUNTER 2024-04-04 16:47 | Outpatient (CLI) | payer BC, SELFPAY ==
--- OUTSIDE RECORDS SUMMARY | 2024-04-04 16:51 | XMS_ITS | Clinical Summary ---
Author Organization [employer] [facility] Address [place], [place] [address] Care Team Providers Care Return To Vendor Name Role Phone Yoseph Grijalva MD Primary Care Provider + [facility] [place] Unavailable [phone] Allergies Active Allergy Reactions Criticality Noted Date Comments Blood-Group Specific Substance Other - Describe In Comment Field 09/14/2023 Patient has an Anti-Big E, Anti-Jkb, Anti-little s and Non Specific antibody. Blood products may be delayed. Draw patient 24 hours prior to transfusion. For [employer] testing, draw one red top and two [...] 09/13/2023 Active methocarbamoL (ROBAXIN) 750 mg tabletIndications:Ac [place] postoperative pain Take 1 Tablet (750 mg) by mouth every 6 hours. 20 Tablet 09/13/2023 Active oxyCODONE (ROXICODONE) 5 mg immediate release tabletIndications:Ac [place] postoperative pain Take 1-3 Tablets (5-15 mg) [...] left ventricular ejection fraction normalized. Follows with [facility]. Chronic pain 05/02/2023 Hypovolemia associated with diuresis [...] Hospital Encounter [facility] [address] [place] [address] Edgardo Talley PA Back pain 03/21/2024 Travel 02/11/2024 Telephone [employer] [facility] [address] [facility] [address] [place] [address] Tom Moses MD Blood Pressure [...] Comments Blood Pressure 130/91 09/13/2023 8:37 AM HEARING THERAPIST Pulse 70 09/13/2023 8:37 AM HEARING THERAPIST Temperature 37.2 ??C (99 ??F) 09/13/2023 8:37 AM HEARING THERAPIST Respiratory Rate 16 09/13/2023 8:37 AM HEARING THERAPIST Oxygen Saturation 96% 09/13/2023 8:37 AM HEARING THERAPIST Inhaled Oxygen Concentration - - Weight 81.1 kg (178 lb 14.4 oz) 09/10/2023 7:10 AM HEARING THERAPIST Height 195.6 cm (6' 5) 09/10/2023 7:10 AM HEARING THERAPIST Body Mass Index 21.21 09/10/2023 7:10 AM HEARING THERAPIST Plan of Treatment Health Maintenance Due Date [...] Completed 01/06/2022 Medical Devices Implanted Type Area Child Care Aide Device Identifier Shelf Expiration Date Model / Serial / Lot [id number] one Matrix 1x10cm Carlos Strip Dbm Implanted:Qty: 1 on 09/11/2022 by Bogdan Michael MD at [facility] Explanted:at [facility] (Quantity not on file) N/A: Spine Medtronic Spine/Ortho 10/10/2024 [id number] / [id number] / Screw Lmbr Post 7.5x40mm Solera 5.5/6 Va Cocr - [id number] Implanted:Qty: 2 on 09/11/2022 by Bogdan Michael MD at [facility] N/A: Spine Medtronic Spine/Ortho [id number] / / Screw Lmbr Post 7.5x45mm Solera 5.5/6 Va Cocr - [id number] Implanted:Qty: 3 on 09/11/2022 by Bogdan Michael MD at [facility] N/A: Spine Medtronic Spine/Ortho [id number] / / Barbara Lmbr 500x5.5mm Solera 5.5/6 Stra Titnm Alloy - [id number] Implanted:Qty: 2 on 09/11/2022 by Bogdan Michael MD at [facility] N/A: Spine Medtronic Spine/Ortho [id number] / / Screw Lmbr Post 6.5x45mm Solera 5.5/6 Va Cocr - [id number] Implanted:Qty: 8 on 09/11/2022 by Bogdan Michael MD at [facility] N/A: Spine Medtronic Spine/Ortho [id number] / / Set Screw Lmbr Std Barbara Connection Titnm - [id number] Implanted:Qty: 1 on 09/11/2022 by Bogdan Michael MD at [facility] N/A: Spine Medtronic Spine/Ortho [id number] / / Screw Lmbr 5.5x25mm Endo Skeleton Tas Bone Alif Stand Alone - [id number] Implanted:Qty: 3 on 09/11/2022 by Bogdan Michael MD at [facility] N/A: Spine Medtronic Spine/Ortho [id number] / / Screw Lmbr 5.5x30mm Endo Skeleton Tas Bone Alif Stand Alone - [id number] Implanted:Qty: 2 on 09/11/2022 by Bogdan Michael MD at [facility] N/A: Spine Medtronic Spine/Ortho [id number] / / Screw Lmbr 6.5x30mm Endo Skeleton Tas Bone Alif Stand Alone - [id number] Implanted:Qty: 3 on 09/11/2022 by Bogdan Michael MD at [facility] N/A: Spine Medtronic Spine/Ortho [id number] / / Bone Matrix Lg Infuse Bmp - [id number] Implanted:Qty: 1 on 09/11/2022 by Bogdan Michael MD at [facility] N/A: Spine Medtronic Spine/Ortho 10/03/2024 [id number] / / [id number] Screw Bs Cncmas 9.5x80 T/C Implanted:Qty: 2 on 09/11/2022 by Bogdan Michael MD at [facility] N/A: Spine [id number] / / Description:SCREW BS CNCMAS 9.5X80 T/C [id number] one Matrix 1x10cm Crockett Strip Dbm Implanted:Qty: 1 on 09/11/2022 by Bogdan Michael MD at [facility] Explanted:at [facility] (Quantity not on file) N/A: Spine Medtronic Spine/Ortho 11/23/2024 [id number] / [id number] / Connector 5/6-6.0 Clsd Lat 25 Implanted:Qty: 1 on 09/11/2022 by Bogdan Michael MD at [facility] N/A: Spine [id number] / / Description:CONNECTOR 5/6-6. 0 CLSD LAT 25 Lillie Spacer Tas 7 Dg Lg 12mm Implanted:Qty: 1 on 09/11/2022 by Bogdan Michael MD at [facility] N/A: Spine 11/14/2026 [id number] / / [id number] Description:LILLIE SPACER TAS 7 DG LG 12MM Lillie Spacer Tas 12dg Lg 14mm Implanted:Qty: 1 on 09/11/2022 by Bogdan Michael MD at [facility] N/A: Spine 11/25/2025 [id number] / / [id number] Description:LILLIE SPACER TAS 12DG LG 14MM Lillie Spacer Tas 12dg Lg 16mm Implanted:Qty: 1 on 09/11/2022 by Bogdan Michael MD at [facility] N/A: Spine 04/08/2026-N / / [id number] Description:LILLIE SPACER TAS 12DG LG 16MM Lillie Spacer Tas 12dg Lg 16mm Implanted:Qty: 1 on 09/11/2022 by Bogdan Michael MD at [facility] N/A: Spine 09/03/2026-N / / [id number] Description:LILLIE SPACER TAS 12DG LG 16MM [id number] one Matrix 1x10cm Carlos Strip Dbm Implanted:Qty: 1 on 09/11/2022 by Bogdan Michael MD at [facility] Explanted:at [facility] (Quantity not on file) N/A: Spine Medtronic Spine/Ortho 11/30/2024 [id number] / [id number] / [id number] one 1-4mm 90cc Medtronic Chips Canclls Freeze Dried Implanted:Qty: 1 on 09/11/2022 by Bogdan Michael MD at [facility] Explanted:at [facility] (Quantity not on file) N/A: Spine Medtronic Spine/Ortho 09/28/2026 [id number] / [id number] / [id number] one 1-4mm 90cc Medtronic Chips Canclls Freeze Dried Implanted:Qty: 1 on 09/11/2022 by Bogdan Michael MD at [facility] Explanted:at [facility] (Quantity not on file) N/A: Spine Medtronic Spine/Ortho 09/28/2026 [id number] / [id number] / [id number] one 1-4mm 30cc Medtronic Chips Canclls Freeze Dried Implanted:Qty: 1 on 09/11/2022 by Bogdan Michael MD at [facility] Explanted:at [facility] (Quantity not on file) N/A: Spine Medtronic Spine/Ortho 07/21/2026 [id number] / [id number] / [id number] one 1-4mm 90cc Medtronic Chips Canclls Freeze Dried Implanted:Qty: 1 on 09/11/2022 by Bogdan Michael MD at [facility] Explanted:at [facility] (Quantity not on file) N/A: Spine Medtronic Spine/Ortho 09/30/2026 [id number] / [id number] / [id number] one 1-4mm 90cc Medtronic Chips Canclls Freeze Dried Implanted:Qty: 1 on 09/11/2022 by Bogdan Michael MD at [facility] Explanted:at [facility] (Quantity not on file) N/A: Spine Medtronic Spine/Ortho 10/01/2026 [id number] / [id number] / Set Screw Lmbr Ant 5.5mm Solera Break Off - [id number] Implanted:Qty: 15 on 09/11/2022 by Bogdan Michael MD at [facility] N/A: Spine Medtronic Spine/Ortho [id number] / / Bone 1-4mm 60cc Medtronic Fine Canclls Freeze Dried - [id number] Implanted:Qty: 1 on 09/10/2023 by Bogdan Michael MD at [facility] N/A: Spine Medtronic Spine/Ortho 01/01/2027 [id number] / [id number] / Cnnctr Lmbr 5.5x5.5mm Barbara Connect Variable Titnm Dar - [id number] Implanted:Qty: 4 on 09/10/2023 by Bogdan Michael MD at [facility] N/A: Spine Medtronic Spine/Ortho [id number] / / Set Screw Lmbr Std Barbara Connection Titnm - [id number] Implanted:Qty: 8 on 09/10/2023 by Bogdan Michael MD at [facility] N/A: Spine Medtronic Spine/Ortho [id number] / / Set Screw Lmbr Ant 5.5mm Solera Break Off - [id number] Implanted:Qty: 2 on 09/10/2023 by Bogdan Michael MD at [facility] N/A: Spine Medtronic Spine/Ortho [id number] / / Barbara Lmbr 110x5.5mm Solera 5.5/6 Cvd Titnm - [id number] Implanted:Qty: 1 on 09/10/2023 by Bogdan Michael MD at [facility] N/A: Spine Medtronic Spine/Ortho [id number] / / Barbara Lmbr 90x5.5mm Solera 5.5/6 Cvd Titnm - [id number] Implanted:Qty: 1 on 09/10/2023 by Bogdan Michael MD at [facility] N/A: Spine Medtronic Spine/Ortho [id number] / / Barbara Lmbr 70x5.5mm Solera 5.5/6 Cvd Titnm - [id number] Implanted:Qty: 1 on 09/10/2023 by Bogdan Michael MD at [facility] N/A: Spine Medtronic Spine/Ortho [id number] / / Barbara Lmbr 50x5.5mm Solera 5.5/6 Cvd Titnm - [id number] Implanted:Qty: 1 on 09/10/2023 by Bogdan Michael MD at [facility] N/A: Spine Medtronic Spine/Ortho [id number] / / Explanted Type Area Child Care Aide Device Identifier Shelf Expiration Date Model / Serial / Lot Explant Explanted:Qty: 8 on 09/10/2023 at [facility] N/A: Spine Description:BARBARA X2 SCREW X3 SET [...] Report is available in patient chart at [facility]. Edg[facility] * ANTI HIV 1/2 (01/06/2022 7:29 AM CDT) HIV-1/HIV-2 ANTIBODY Non-Reacti ve Non-Reacti ve 01/06/2022 11:11 AM [address] [facility] Comment:HIV-1 p24 and HIV-1/ HIV-2 Ab not detected. Blood BLOOD SPECIMEN / Unknown Venipuncture / Unknown 01/06/2022 7:29 AM CDT 01/06/2022 8:14 AM CDT Jefe Sam MD SEND OUTS [facility] [address] [place] [address], * Lipid Panel AM (01/06/2022 7:29 AM CDT) CHOLESTEROL,TOTAL 154 100 - 199 mg/dL 01/06/2022 8:51 AM CDT [facility] TRIGLYCERIDES 72 <150 mg/dL 01/06/2022 8:51 AM CDT [facility] HDL CHOLESTEROL 65 >40 mg/dL 8:51 AM CDT [facility] NON-HDL CHOLESTEROL 89 <145 mg/dl 01/06/2022 8:51 AM CDT [facility] CHOL/HDL RATIO 2.37 <4.50 01/06/2022 8:51 AM CDT [facility] [employer] [facility] LDL CHOLESTEROL 75 <=130 mg/dL 01/06/2022 8:51 AM CDT [facility] VLDL CHOLESTEROL 14 <=30 mg/dL 01/06/2022 8:51 AM CDT [facility] PROVIDER ORDERED STATUS RANDOM 01/06/2022 8:51 AM CDT [facility] Blood BLOOD SPECIMEN / Unknown Venipuncture / Unknown 01/06/2022 7:29 AM CDT 01/06/2022 8:14 AM CDT Cody David MD CHEMISTRY [facility] [address] [place] [address], from Last 3 Months or Most Recently Relevant to Health Maintenance Advance Directives Documents on File Type Date Recorded Patient Knitter Machine Expl anation Power of Dairy Nutrition Consultant 03/04/2022 03/04/2022 Healthcare Directive 03/04/2022 022 * [...] Comments Code Status Discussion: Other Care Teams Return To Vendor Relationship Specialty Start Date End Date Yoseph Grijalva MD [address] [place] [address] PCP - General Family Practice 02/02/[address] [address] 09/13/23
--- OUTSIDE RECORDS SUMMARY | 2024-04-04 16:51 | XMS_ITS | Continuity of Care Document ---
Author Organization [facility] Address [address] [place] [address] Phone Care Team Providers Care El Teacher Name Role Phone Mayank PAULA Edgardo Unavailable Unavailable Allergies, Adverse Reactions, Alerts Substance Reaction Status Criticality No Known Allergies Active No Inform ation Medications Medication Instructions Dosage Effective Dates (start - stop) Status Comments oxycodone 5 mg tablet Take 1-3 tablets b y mouth every 4-6 hours as needed for post op pain (G89.18) - Active SUBOXONE (unknown strength) Not Available [...] [facility], [address], [place], [address] , [place] tel:[phone] [facility] Encounter for other specified surgical aftercare 4 Mayank Reynoso. [facility], [address], [address], [place], [address] , [place]. tel:[phone] Referring Provider: oYseph Grijalva, [facility] [address] [place], [address]. tel:[phone] Office/Outpa tient Visit,Est, Mod [facility], [address], [place], [place], [address] , [place] tel: [phone] [facility] Encounter for other specified surgical aftercare 4 Panvica Edgardo. [facility], [address], [address], [place], [place], [address] , [place]. tel:[phone] Referring Provider: [facility] [address] [place], [address]. tel:[phone] [facility], [address], [place], [place], [address] , [place] tel: [phone] [facility] Encounter for other specified surgical aftercare 4 Michael Bogdan. [facility], [address], [address], [place], [place], [address] , [place]. [phone] Referring Provider: Yoseph Grijalva, [facility] [address] [place], [address]. [phone] [facility], [address], [place], [place], [address] , [place] tel: [phone] [facility] No Information 3 Panvica Edgardo. [facility], [address], [address], [place], [place], [address] , [place]. [phone] Referring Provider: [facility] [address] [place], [address]. tel:[phone] [facility], [address], [place], [place], [address] , [place] tel:[phone] [facility] No Information 3 Michael Bogdan. [facility], [address], [address], [place], [place], [address] , [place]. tel:[phone] [facility], [address], [place], [address] , [place] tel: [phone] [facility] No Information 3 Michael Bogdan. [facility], [address], [address], [facility] [place], [address] , [place]. tel:[phone] Referring Provider: [facility] [address] [place], [address]. tel:[phone] Office/Outpa tient Visit,Est, Mod [facility], [address], [facility] [place], [address] , [place] tel:[phone] [facility] Encounter for other specified surgical aftercare 0 3 Michael Bogdan. [facility], [address], [address], [place], [place], [address] , [place]. tel:[phone] Referring Provider: Yoseph Grijalva, [facility] [address] [place], [address]. tel:[phone] [facility], [address], [facility] [place], [address] , [place] [phone] [facility] Encounter for other specified surgical aftercare 0 2 3 Michael Bogdan. [facility], [address], [address], [place], [place], [address] , [place]. [phone] Referring Provider: Yoseph Grijalva, [facility] [address] [place], [address]. tel:[phone] [facility], [address], [facility] [place], [address] , [place] [phone] [facility] Encounter for other specified surgical aftercare Oct- 3 Michael Bogdan. [facility], [address], [address], [place], [place], [address] , [place]. tel: [phone] Referring Provider: Yoseph Grijalva, [facility] [address] [place], [address]. tel:[phone] [facility], [address], [place], [place], [address] , [place] tel: [phone] [facility] No Information 2 Panvica Edgardo. [facility], [address], [address], [place], [place], [address] , [place]. tel: [phone] Referring Provider: [facility] [address] [place], [address]. tel:[phone] [facility], [address], [place], [place], [address] , [place] tel: [phone] [facility] No Information 2 Michael Bogdan. [facility], [address] [place] [address], [address], [place], [place], [address] , [place]. tel:[phone] Referring Provider: [facility] [address] [place], [address]. tel:[phone] Office/Outpa tient Visit,Est, Mod [facility], [address], [place], [place], [address] , [place] tel: [phone] [facility] Other idiopathic scoliosis, lumbar region 2 Michael Bogdan. [facility], [address], [address], [place], [place], [address] , [place]. tel:[phone] Referring Provider: [facility] [address] [place], [address]. [phone] Office/Outpa tient Visit,Est, Mod [facility], [address], [place], [place], [address] , [place] tel: [phone] [facility] Other idiopathic scoliosis, lumbar regionCurvature of spineSpinal stenosis, lumbar region with neurogenic claudicationSpin al stenosis, lumbosacral region 2 Michael Bogdan. [facility], [address], [address], [place], [place], [address] , [place]. tel:[phone] Referring Provider: Yoseph Grijalva, [facility] [address] [place], [address]. tel:[phone] Office/Outpa tient Visit,Est, Mod [facility], [address], [place], [place], [address] , [place] [phone] [facility] Other forms of scoliosis, lumbar regionOther forms of scoliosis, thoracic region Dec- 1 Michael Bogdan. [facility], [address], [address], [place], [place], [address] , [place]. tel:[phone] Referring Provider: Yoseph Grijalva, [facility] [address] [place], [address]. tel:[phone] Office/Outpa tient Visit,New, Mod [facility], [address], [place], [place], [address] , [place] tel:[phone] [facility] [place] Other forms of scoliosis, thoracic regionOther forms of scoliosis, lumbar region Fe 1 Panvica Edgardo. [facility], [address] [place] [address], [address], [place], [place], [address] , [place]. tel:[phone] Referring Provider: Yoseph Grijalva, [facility] [address] [place], [address]. tel:[phone] Family History Family Member Type Diagnosis Age At Onset No Information Payers Payer name Insurance type Covered republican ID Authornoemia tipaz(s) [facility] [id number] [facility] [id number] Social History Type Description Quantity Date Captured [...]
== END 2024-04-04 16:48 | disposition home or self-care (01) ==
PROVIDERS: PCP Family Medicine; Visit Provider Family Medicine
DX: R06.02 Shortness of breath (principal); R53.83 Other fatigue; N53.14 Retrograde ejaculation; Z12.5 Encounter for screening for malignant neoplasm of prostate
CPT/HCPCS: 80048; 83880; 84403; 84443; 85379; G0103

== ENCOUNTER 2024-04-05 09:52 | Outpatient (CLI) | payer BC, SELFPAY ==
--- NOTE | 2024-04-05 10:00 | CRLHL7_ITS ---
For Patients: As a result of the Century Cures Act, medical imaging exams and procedure reports are released immediately into your electronic medical record. You may view this report before your referring provider. If you have questions, please contact your health care provider. INDICATION: Positive D-dimer TECHNIQUE: Ultrasound venous duplex lower right extremity. Compression venous exam was performed using mccain-scale, color Doppler, and spectral Doppler imaging. COMPARISON: None. FINDINGS: Sonographic imaging demonstrates the right common femoral, deep femoral, superficial femoral, popliteal, posterior tibial and greater saphenous and the contralateral left common femoral veins to be fully compressible with normal color Doppler blood flow. IMPRESSION: Normal right lower extremity venous ultrasound, no sign of deep venous thrombosis. Dictated by Coleman Melendez MD @ 04/05/2024 1:02:46 PM (Electronically Signed)
--- OUTSIDE RECORDS SUMMARY | 2024-04-05 10:00 | XMS_ITS | Clinical Summary ---
Author Organization [facility] Address [place], [place] [address] Care Team Providers Care Psychometrist Name Role Phone Yoseph Grijalva MD Primary Care Provider + [facility], [place] Unavailable [phone] Allergies Active Allergy Reactions Criticality Noted Date Comments Blood-Group Specific Substance Other - Describe In Comment Field 09/14/2023 Patient has an Anti-Big E, Anti-Jkb, Anti-little s and Non Specific antibody. Blood products may be delayed. Draw patient 24 hours prior to transfusion. For [facility] testing, draw one red top and two [...] 09/13/2023 Active methocarbamoL (ROBAXIN) 750 mg tabletIndications:Ac lower elwha postoperative pain Take 1 Tablet (750 mg) by mouth every 6 hours. 20 Tablet 09/13/2023 Active oxyCODONE (ROXICODONE) 5 mg immediate release tabletIndications:Ac lower elwha postoperative pain Take 1-3 Tablets (5-15 mg) [...] left ventricular ejection fraction normalized. Follows with [facility]. Chronic pain 05/02/2023 Hypovolemia [...] Hospital Encounter [facility] [address] [place] [address] Edgardo Talley PA Back pain 03/21/2024 Travel 02/11/2024 Telephone [facility] [address] [facility] [address] [place] [address] Tom Moses MD Blood Pressure [...] Comments Blood Pressure 130/91 09/13/2023 8:37 AM [facility] Pulse 70 09/13/2023 8:37 AM SHEEP [facility] Temperature 37.2 ??C (99 ??F) 09/13/2023 8:37 AM SHEEP [facility]ER Respiratory Rate 16 09/13/2023 8:37 AM SHEEP KILLER Oxygen Saturation 96% 09/13/2023 8:37 AM SHEEP KILLER Inhaled Oxygen Concentration - - Weight 81.1 kg (178 lb 14.4 oz) 09/10/2023 7:10 AM SHEEP K[facility]ER Height 195.6 cm (6' 5) 09/10/2023 7:10 AM SHEEP K[facility]ER Body Mass Index 21.21 09/10/2023 7:10 AM SHEEP [facility] Plan of Treatment Health Maintenance Due Date [...] Completed 01/06/2022 Medical Devices Implanted Type Area Project Finance Analyst Device Identifier Shelf Expiration Date Model / Serial / Lot [id number] one Matrix 1x10cm Carlos Strip Dbm Implanted:Qty: 1 on 09/11/2022 by Bogdan Michael MD at [facility] Explanted:at [facility] (Quantity not on file) N/A: Spine Medtronic Spine/Ortho 10/10/2024 [id number] / [id number] / Screw Lmbr Post 7.5x40mm Solera 5.5/6 Va Cocr - [id number] Implanted:Qty: 2 on 09/11/2022 by Bogdan Michael MD at [facility] N/A: Spine Medtronic Spine/Ortho [id number] / / Screw Lmbr Post 7.5x45mm Solera 5.5/6 Va Cocr - [id number] Implanted:Qty: 3 on 09/11/2022 by Bogdan Michael MD at [facility] N/A: Spine Med[employer]onic Spine/Ortho [id number] / / Barbara Lmbr 500x5.5mm Solera 5.5/6 Stra Titnm Alloy - [id number] Implanted:Qty: 2 on 09/11/2022 by Bogdan Michael MD at [facility] N/A: Spine Med[employer]onic Spine/Ortho [id number] / / Screw Lmbr Post 6.5x45mm Solera 5.5/6 Va Cocr - [id number] Implanted:Qty: 8 on 09/11/2022 by Bogdan Michael MD at [facility] N/A: Spine [employer] Spine/Ortho [id number] / / Set Screw Lmbr Std Barbara Connection Titnm - [id number] Implanted:Qty: 1 on 09/11/2022 by Bogdan Michael MD at [facility] N/A: Spine Med[employer]onic Spine/Ortho [id number] / / Screw Lmbr 5.5x25mm Endo Skeleton Tas Bone Alif Stand Alone - [id number] Implanted:Qty: 3 on 09/11/2022 by Bogdan Michael MD at [facility] N/A: Spine Med[employer]onic Spine/Ortho [id number] / / Screw Lmbr 5.5x30mm Endo Skeleton Tas Bone Alif Stand Alone - [id number] Implanted:Qty: 2 on 09/11/2022 by Bogdan Michael MD at [facility] N/A: Spine Med[employer]onic Spine/Ortho [id number] / / Screw Lmbr 6.5x30mm Endo Skeleton Tas Bone Alif Stand Alone - [id number] Implanted:Qty: 3 on 09/11/2022 by Bogdan Michael MD at [facility] N/A: Spine Med[employer]onic Spine/Ortho [id number] / / Bone Matrix Lg Infuse Bmp - [id number] Implanted:Qty: 1 on 09/11/2022 by Bogdan Michael MD at [facility] N/A: Spine [employer] Spine/Ortho 10/03/2024 [id number] / / [id number] Screw Bs Cncmas 9.5x80 T/C Implanted:Qty: 2 on 09/11/2022 by Bogdan Michael MD at [facility] N/A: Spine [id number] / / Description:SCREW BS CNCMAS 9.5X80 T/C [id number] one Matrix 1x10cm [place] Strip Dbm Implanted:Qty: 1 on 09/11/2022 by Bogdan Michael MD at [facility] Explanted:at [facility] (Quantity not on file) N/A: Spine Med[employer] Spine/Ortho 11/23/2024 [id number] / [id number] / Connector 5/6-6.0 Clsd Lat 25 Implanted:Qty: 1 on 09/11/2022 by Bogdan Michael MD at [facility] N/A: Spine [id number] / / Description:CONNECTOR 5/6-6. 0 CLSD LAT 25 Lillie Spacer Tas 7 Dg Lg 12mm Implanted:Qty: 1 on 09/11/2022 by Bogdan Michael MD at [facility] N/A: Spine 11/14/2026 [id number] / / [id number] Description:LILLIE SPACER TAS 7 DG LG 12MM Lillie Spacer Tas 12dg Lg 14mm Implanted:Qty: 1 on 09/11/2022 by Bogdan Michael MD at [facility] N/A: Spine 11/25/2025 [id number] / / [id number] Description:LILLIE SPACER TAS 12DG LG 14MM Lillie Spacer Tas 12dg Lg 16mm Implanted:Qty: 1 on 09/11/2022 by Bogdan Michael MD at [facility] N/A: Spine 04/08/2026-N / / [id number] Description:LILLIE SPACER TAS 12DG LG 16MM Lillie Spacer Tas 12dg Lg 16mm Implanted:Qty: 1 on 09/11/2022 by Bogdan Michael MD at [facility] N/A: Spine 09/03/2026-N / / [id number] Description:LILLIE SPACER TAS 12DG LG 16MM [id number] one Matrix 1x10cm Carlos Strip Dbm Implanted:Qty: 1 on 09/11/2022 by Bogdan Michael MD at [facility] Explanted:at [facility] (Quantity not on file) N/A: Spine Med[employer]onic Spine/Ortho 11/30/2024 [id number] / [id number] / [id number] one 1-4mm 90cc Medtronic Chips Canclls Freeze Dried Implanted:Qty: 1 on 09/11/2022 by Bogdan Michael MD at [facility] Explanted:at [facility] (Quantity not on file) N/A: Spine Med[employer] Spine/Ortho 09/28/2026 [id number] / [id number] / [id number] one 1-4mm 90cc Medtronic Chips Canclls Freeze Dried Implanted:Qty: 1 on 09/11/2022 by Bogdan Michael MD at [facility] Explanted:at [facility] (Quantity not on file) N/A: Spine Med[employer]onic Spine/Ortho 09/28/2026 [id number] / [id number] / [id number] one 1-4mm 30cc Medtronic Chips Canclls Freeze Dried Implanted:Qty: 1 on 09/11/2022 by Bogdan Michael MD at [facility] Explanted:at [facility] (Quantity not on file) N/A: Spine Med[employer]onic Spine/Ortho 07/21/2026 [id number] / [id number] / [id number] one 1-4mm 90cc Medtronic Chips Canclls Freeze Dried Implanted:Qty: 1 on 09/11/2022 by Bogdan Michael MD at [facility] Explanted:at [facility] (Quantity not on file) N/A: Spine Medtronic Spine/Ortho 09/30/2026 [id number] / [id number] / [id number] one 1-4mm 90cc Medtronic Chips Canclls Freeze Dried Implanted:Qty: 1 on 09/11/2022 by Bogdan Michael MD at [facility] Explanted:at [facility] (Quantity not on file) N/A: Spine Medtronic Spine/Ortho 10/01/2026 [id number] / [id number] / Set Screw Lmbr Ant 5.5mm Solera Break Off - [id number] Implanted:Qty: 15 on 09/11/2022 by Bogdan Michael MD at [facility] N/A: Spine Medtronic Spine/Ortho [id number] / / Bone 1-4mm 60cc Medtronic Fine Canclls Freeze Dried - [id number] Implanted:Qty: 1 on 09/10/2023 by Bogdan Michael MD at [facility] N/A: Spine Medtronic Spine/Ortho 01/01/2027 [id number] / [id number] / Cnnctr Lmbr 5.5x5.5mm Barbara Connect Variable Titnm Dar - [id number] Implanted:Qty: 4 on 09/10/2023 by Bogdan Michael MD at [facility] N/A: Spine Medtronic Spine/Ortho [id number] / / Set Screw Lmbr Std Barbara Connection Titnm - [id number] Implanted:Qty: 8 on 09/10/2023 by Bogdan Michael MD at [facility] N/A: Spine Medtronic Spine/Ortho [id number] / / Set Screw Lmbr Ant 5.5mm Solera Break Off - [id number] Implanted:Qty: 2 on 09/10/2023 by Bogdan Michael MD at [facility] N/A: Spine Medtronic Spine/Ortho [id number] / / Barbara Lmbr 110x5.5mm Solera 5.5/6 Cvd Titnm - [id number] Implanted:Qty: 1 on 09/10/2023 by Bogdan Michael MD at [facility] N/A: Spine Medtronic Spine/Ortho [id number] / / Barbara Lmbr 90x5.5mm Solera 5.5/6 Cvd Titnm - [id number] Implanted:Qty: 1 on 09/10/2023 by Bogdan Michael MD at [facility] N/A: Spine Medtronic Spine/Ortho [id number] / / Barbara Lmbr 70x5.5mm Solera 5.5/6 Cvd Titnm - [id number] Implanted:Qty: 1 on 09/10/2023 by Bogdan Michael MD at [facility] N/A: Spine Medtronic Spine/Ortho [id number] / / Barbara Lmbr 50x5.5mm Solera 5.5/6 Cvd Titnm - [id number] Implanted:Qty: 1 on 09/10/2023 by Bogdan Michael MD at [facility] N/A: Spine Medtronic Spine/Ortho [id number] / / Explanted Type Area Project Finance Analyst Device Identifier Shelf Expiration Date Model / Serial / Lot Explant Explanted:Qty: 8 on 09/10/2023 at [facility] N/A: Spine Description:BARBARA X2 SCREW X3 SET [...] Report is available in patient chart at [facility]. Edgardo [facility] * ANTI HIV 1/2 (01/06/2022 7:29 AM CDT) HIV-1/HIV-2 ANTIBODY Non-Reacti ve Non-Reacti ve 01/06/2022 11:11 AM CDT [facility] Comment:HIV-1 p24 and HIV-1/ HIV-2 Ab not detected. Blood BLOOD SPECIMEN / Unknown Venipuncture / Unknown 01/06/2022 7:29 AM CDT 01/06/2022 8:14 AM CDT Jefe Sam MD SEND OUTS [facility] [address] [place] [address], * Lipid Panel AM (01/06/2022 7:29 AM CDT) CHOLESTEROL,TOTAL 154 100 - 199 mg/dL 01/06/2022 8:51 AM CDT [facility] TRIGLYCERIDES 72 <150 mg/dL 01/06/2022 8:51 AM CDT [facility] HDL CHOLESTEROL 65 >40 mg/dL 8:51 AM CDT [facility] NON-HDL CHOLESTEROL 89 <145 mg/dl 01/06/2022 8:51 AM CDT [facility] CHOL/HDL RATIO 2.37 <4.50 01/06/2022 8:51 AM CDT [facility] LDL CHOLESTEROL 75 <=130 mg/dL 01/06/2022 8:51 AM CDT [facility] VLDL CHOLESTEROL 14 <=30 mg/dL 01/06/2022 8:51 AM CDT [facility] PROVIDER ORDERED STATUS RANDOM 01/06/2022 8:51 AM CDT [facility] Blood BLOOD SPECIMEN / Unknown Venipuncture / Unknown 01/06/2022 7:29 AM CDT 01/06/2022 8:14 AM CDT Cody David MD CHEMISTRY [facility] [address] [place] [address], from Last 3 Months or Most Recently Relevant to Health Maintenance Advance Directives Documents on File Type Date Recorded Patient Topographical Engineer Expl anation Power of Therapeutic Sales Specialist 03/04/2022 03/04/2022 Healthcare Directive 03/04/2022 022 * [...] Comments Code Status Discussion: Other Care Teams Psychometrist Relationship Specialty Start Date End Date Yoseph Grijalva MD [address] [place] [address] PCP - General Family Practice 02/02/[address] [address] 09/13/23
--- OUTSIDE RECORDS SUMMARY | 2024-04-05 10:00 | XMS_ITS | Continuity of Care Document ---
Author Organization [facility] Address [address] [place] [address] Phone Care Team Providers Care Water Leak Repairer Name Role Phone Mayank PAULA Edgardo Unavailable [...] [facility], [address], [place], [id number] , [place] tel:[phone] [facility] Encounter for other specified surgical aftercare 4 Mayank Reynoso. [facility], [address], [address], [place], [id number] , [place]. tel:[phone] Referring Provider: Yoseph Grijalva, [facility] [address] [place], [address]. tel:[phone] Office/Outpa tient Visit,Est, Mod [facility], [address], [place], [place], [address] , [place] tel: [phone] [facility] Encounter for other specified surgical aftercare 4 Panvica Edgardo. [facility], [address], [address], [place], [place], [address] , [place]. tel:[phone] Referring Provider: [facility] [address] [place], [address]. tel:[phone] [facility], [address], [place], [place], [id number] , [place] tel: [phone] [facility] Encounter for other specified surgical aftercare 4 Michael Bogdan. [facility], [address], [address], [place], [place], [address] , [place]. [phone] Referring Provider: Yoseph Grijalva, [facility] [address] [place], [address]. [phone] [facility], [address], [place], [place], [address] , [place] tel: [phone] [facility] No Information 3 Panvica Edgardo. [facility], [address], [address], [place], [place], [address] , [place]. [phone] Referring Provider: [facility] [address] [place], [address]. tel:[phone] [facility], [address], [place], [place], [address] , [place] tel:[phone] [facility] No Information 3 Michael Bogdan. [facility], [address], [address], [place], [place], [address] , [place]. tel:[phone] [facility], [address], [place], [id number] , [place] tel: [phone] [facility] No Information 3 Michael Bogdan. [facility], [address], [address], [facility] [place], [id number] , [place]. tel:[phone] Referring Provider: [facility] [address] [place], [address]. tel:[phone] Office/Outpa tient Visit,Est, Mod [facility], [address], [facility] [place], [address] , [place] tel:[phone] [facility] - [facility] Encounter for other specified surgical aftercare 0 3 Michael Bogdan. [facility], [address], [address], [place], [place], [address] , [place]. tel:[phone] Referring Provider: Yoseph Grijalva, [facility] [address] [place], [address]. tel:[phone] [facility], [address], [facility] [place], [address] , [place] [phone] [facility] - [facility] Encounter for other specified surgical aftercare 0 2 3 Michael Bogdan. [facility], [address], [address], [place], [place], [address] , [place]. [phone] Referring Provider: Yoseph Grijalva, [facility] [address] [place], [address]. tel:[phone] [facility], [address], [facility] [place], [id number] , [place] [phone] [facility] Encounter for other specified surgical aftercare Oct- 3 Michael Bogdan. [facility], [address], [address], [place], [place], [address] , [place]. tel: [phone] Referring Provider: Yoseph Grijalva, [facility] [address] [place], [address]. tel:[phone] [facility], [address], [place], [place], [address] , [place] tel: [phone] [facility] No Information 2 Panvica Edgardo. [facility], [address], [address], [place], [place], [address] , [place]. tel: [phone] Referring Provider: [facility] [address] [place], [address]. tel:[phone] [facility], [address], [place], [address] , [place] tel: [phone] [facility] No Information 2 Michael Bogdan. [facility], [address] [place] [address], [address], [place], [place], [address] , [place]. tel:[phone] Referring Provider: [facility] [address] [place], [address]. tel:[phone] Office/Outpa tient Visit,Est, Mod [facility], [address], [place], [place], [address] , [place] tel: [phone] [facility] Other idiopathic scoliosis, lumbar region 2 Michael Bogdan. [facility], [address], [address], [place], [place], [address] , [place]. tel:[phone] Referring Provider: [facility] [address] [place], [address]. [phone] Office/Outpa tient Visit,Est, Mod [facility], [address], [place], [place], [address] , [place] tel: [phone] [facility] Other idiopathic scoliosis, lumbar regionCurvature of spineSpinal stenosis, lumbar region with neurogenic claudicationSpin al stenosis, lumbosacral region 2 Michael Bogdan. [facility], [address], [address], [place], [place], [address] , [place]. tel:[phone] Referring Provider: Yoseph Grijalva, [facility] [address] [place], [address]. tel:[phone] Office/Outpa tient Visit,Est, Mod [facility], [address], [place], [place], [address] , [place] [phone] [facility] - [facility] Other forms of scoliosis, lumbar regionOther forms of scoliosis, thoracic region Dec- 1 Michael Bogdan. [facility], [address], [address], [place], [place], [address] , [place]. tel:[phone] Referring Provider: Yoseph Grijalva, [facility] [address] [place], [address]. tel:[phone] Office/Outpa tient Visit,New, Mod [facility], [address], [place], [address] , [place] tel:[phone] [facility] [place] Other forms of scoliosis, thoracic regionOther forms of scoliosis, lumbar region Fe 1 Panvica Edgardo. [facility], [address] [place] [address], [address], [place], [place], [address] , [place]. tel:[phone] Referring Provider: Yoseph Grijalva, [facility] [address] [place], [address]. tel:[phone] Family History Family Member Type Diagnosis Age At Onset No Information Payers Payer name Insurance type Covered green party ID Authornoemia tipaz(s) [facility] [address] [facility] [id number] Social History Type Description Quantity Date Captured [...]
== END 2024-04-05 09:53 | disposition home or self-care (01) ==
LOC: US 09:58
PROVIDERS: PCP Family Medicine; Visit Provider Family Medicine
DX: R79.89 Other specified abnormal findings of blood chemistry (principal)
CPT/HCPCS: 93971

== ENCOUNTER 2024-05-10 07:58 | Outpatient (CLI) | payer BC, SELFPAY ==
--- OUTSIDE RECORDS SUMMARY | 2024-05-10 08:01 | XMS_ITS | Clinical Summary ---
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 Blood products may be delayed. Draw patient 24 hours prior to transfusion. For [employer] testing, draw one red top and two [...] 09/13/2023 Active methocarbamoL (ROBAXIN) 750 mg tabletIndications:Ac [place] postoperative pain Take 1 Tablet (750 mg) by mouth every 6 hours. 20 Tablet 09/13/2023 Active oxyCODONE (ROXICODONE) 5 mg immediate release tabletIndications:Ac [place] postoperative pain Take 1-3 Tablets (5-15 mg) [...] left ventricular ejection fraction normalized. Follows with [facility]. Chronic pain 05/02/2023 Hypovolemia associated with [...] Hospital Encounter [facility] [address] [place] [address] Edgardo Talley PA Back pain 03/21/2024 Travel 02/11/2024 Telephone [employer] [facility] [address] [facility] [address] [place] [address] Tom Moses MD Blood Pressure [...] Comments Blood Pressure 130/91 09/13/2023 8:37 AM [employer] WORK[employer] Pulse 70 09/13/2023 8:37 AM [employer] WORK[employer] Temperature 37.2 ??C (99 ??F) 09/13/2023 8:37 AM [employer] WORKER Respiratory Rate 16 09/13/2023 8:37 AM [employer] WORKER Oxygen Saturation 96% 09/13/2023 8:37 AM [employer] WORKER Inhaled Oxygen Concentration - - Weight 81.1 kg (178 lb 14.4 oz) 09/10/2023 7:10 AM [employer] WORKER Height 195.6 cm (6' 5) 09/10/2023 7:10 AM [employer] WORK[employer] Body Mass Index 21.21 09/10/2023 7:10 AM [employer] WORKER Plan of Treatment Health Maintenance Due Date [...] Completed 01/06/2022 Medical Devices Implanted Type Area Aromatherapist Device Identifier Shelf Expiration Date Model / Serial / Lot [id number] one Matrix 1x10cm [place] Strip Dbm Implanted:Qty: 1 on 09/11/2022 by Bogdan Michael MD at [facility] Explanted:at [facility] (Quantity not on file) N/A: Spine Medtronic Spine/Ortho 10/10/2024 [id number] / [id number] / Screw Lmbr Post 7.5x40mm Solera 5.5/6 Va Cocr - [id number] Implanted:Qty: 2 on 09/11/2022 by Bogdan Michael MD at [facility] N/A: Spine Med[employer]onic Spine/Ortho [id number] / / Screw Lmbr Post 7.5x45mm Solera 5.5/6 Va Cocr - [id number] Implanted:Qty: 3 on 09/11/2022 by Bogdan Michael MD at [facility] N/A: Spine Med[employer]onic Spine/Ortho [id number] / / Barbara Lmbr 500x5.5mm Solera 5.5/6 Stra Titnm Alloy - [id number] Implanted:Qty: 2 on 09/11/2022 by Bogdan Michael MD at [facility] N/A: Spine Med[employer]onic Spine/Ortho [id number] / / Screw Lmbr Post 6.5x45mm Solera 5.5/6 Va Cocr - [id number] Implanted:Qty: 8 on 09/11/2022 by Bogdan Michael MD at [facility] N/A: Spine Med[employer]onic Spine/Ortho [id number] / / Set Screw Lmbr Std Barbara Connection Titnm - [id number] Implanted:Qty: 1 on 09/11/2022 by Bogdan Michael MD at [facility] N/A: Spine Med[employer]onic Spine/Ortho [id number] / / Screw Lmbr 5.5x25mm Endo Skeleton Tas Bone Alif Stand Alone - [id number] Implanted:Qty: 3 on 09/11/2022 by Bogdan Michael MD at [facility] N/A: Spine Med[employer]onic Spine/Ortho [id number] / / Screw Lmbr 5.5x30mm Endo Skeleton Tas Bone Alif Stand Alone - [id number] Implanted:Qty: 2 on 09/11/2022 by Bogdan Michael MD at [facility] N/A: Spine Med[employer]onic Spine/Ortho [id number] / / Screw Lmbr 6.5x30mm Endo Skeleton Tas Bone Alif Stand Alone - [id number] Implanted:Qty: 3 on 09/11/2022 by Bogdan Michael MD at [facility] N/A: Spine Medtronic Spine/Ortho [id number] / / Bone Matrix Lg Infuse Bmp - [id number] Implanted:Qty: 1 on 09/11/2022 by Bogdan Michael MD at [facility] N/A: Spine [employer] Spine/Ortho 10/03/2024 [id number] / / [id number] Screw Bs Cncmas 9.5x80 T/C Implanted:Qty: 2 on 09/11/2022 by Bogdan Michael MD at [facility] N/A: Spine [id number] / / Description:SCREW BS CNCMAS 9.5X80 T/C [id number] one Matrix 1x10cm [place] Strip Dbm Implanted:Qty: 1 on 09/11/2022 by Bogdan Michael MD at [facility] Explanted:at [facility] (Quantity not on file) N/A: Spine Med[employer] Spine/Ortho 11/23/2024 [id number] / [id number] / Connector 5/6-6.0 Clsd Lat 25 Implanted:Qty: 1 on 09/11/2022 by Bogdan Michael MD at [facility] N/A: Spine [id number] / / Description:CONNECTOR 5/6-6. 0 CLSD LAT 25 Lillie Spacer Tas 7 Dg Lg 12mm Implanted:Qty: 1 on 09/11/2022 by Bogdan Michael MD at [facility] N/A: Spine 11/14/2026 [id number] / / [id number] Description:LILLIE SPACER TAS 7 DG LG 12MM Lillie Spacer Tas 12dg Lg 14mm Implanted:Qty: 1 on 09/11/2022 by Bogdan Michael MD at [facility] N/A: Spine 11/25/2025 [id number] / / [id number] Description:LILLIE SPACER TAS 12DG LG 14MM Lillie Spacer Tas 12dg Lg 16mm Implanted:Qty: 1 on 09/11/2022 by Bogdan Michael MD at [facility] N/A: Spine 04/08/2026-N / / [id number] Description:LILLIE SPACER TAS 12DG LG 16MM Lillie Spacer Tas 12dg Lg 16mm Implanted:Qty: 1 on 09/11/2022 by Bogdan Michael MD at [facility] N/A: Spine 09/03/2026-N / / [id number] Description:LILLIE SPACER TAS 12DG LG 16MM [id number] one Matrix 1x10cm [place] Strip Dbm Implanted:Qty: 1 on 09/11/2022 by Bogdan Michael MD at [facility] Explanted:at [facility] (Quantity not on file) N/A: Spine Med[employer]onic Spine/Ortho 11/30/2024 [id number] / [id number] / [id number] one 1-4mm 90cc Medtronic Chips Canclls Freeze Dried Implanted:Qty: 1 on 09/11/2022 by Bogdan Michael MD at [facility] Explanted:at [facility] (Quantity not on file) N/A: Spine [employer] Spine/Ortho 09/28/2026 [id number] / [id number] / [id number] one 1-4mm 90cc Medtronic Chips Canclls Freeze Dried Implanted:Qty: 1 on 09/11/2022 by Bogdan Michael MD at [facility] Explanted:at [facility] (Quantity not on file) N/A: Spine [employer] Spine/Ortho 09/28/2026 [id number] / [id number] / [id number] one 1-4mm 30cc Medtronic Chips Canclls Freeze Dried Implanted:Qty: 1 on 09/11/2022 by Bogdan Michael MD at [facility] Explanted:at [facility] (Quantity not on file) N/A: Spine [employer]onic Spine/Ortho 07/21/2026 [id number] / [id number] / [id number] one 1-4mm 90cc Medtronic Chips Canclls Freeze Dried Implanted:Qty: 1 on 09/11/2022 by Bogdan Michael MD at [facility] Explanted:at [facility] (Quantity not on file) N/A: Spine Medtronic Spine/Ortho 09/30/2026 [id number] / [id number] / [id number] one 1-4mm 90cc Medtronic Chips Canclls Freeze Dried Implanted:Qty: 1 on 09/11/2022 by Bogdan Michael MD at [facility] Explanted:at [facility] (Quantity not on file) N/A: Spine [employer]onic Spine/Ortho 10/01/2026 [id number] / [id number] / Set Screw Lmbr Ant 5.5mm Solera Break Off - [id number] Implanted:Qty: 15 on 09/11/2022 by Bogdan Michael MD at [facility] N/A: Spine Medtronic Spine/Ortho [id number] / / Bone 1-4mm 60cc Medtronic Fine Canclls Freeze Dried - [id number] Implanted:Qty: 1 on 09/10/2023 by Bogdan Michael MD at [facility] N/A: Spine Medtronic Spine/Ortho 01/01/2027 [id number] / [id number] / Cnnctr Lmbr 5.5x5.5mm Barbara Connect Variable Titnm [place] - [id number] Implanted:Qty: 4 on 09/10/2023 by Bogdan Michael MD at [facility] N/A: Spine Medtronic Spine/Ortho [id number] / / Set Screw Lmbr Std Barbara Connection Titnm - [id number] Implanted:Qty: 8 on 09/10/2023 by Bogdan Michael MD at [facility] N/A: Spine Medtronic Spine/Ortho [id number] / / Set Screw Lmbr Ant 5.5mm Solera Break Off - [id number] Implanted:Qty: 2 on 09/10/2023 by Bogdan Michael MD at [facility] N/A: Spine Medtronic Spine/Ortho [id number] / / Barbara Lmbr 110x5.5mm Solera 5.5/6 Cvd Titnm - [id number] Implanted:Qty: 1 on 09/10/2023 by Bogdan Michael MD at [facility] N/A: Spine Medtronic Spine/Ortho [id number] / / Barbara Lmbr 90x5.5mm Solera 5.5/6 Cvd Titnm - [id number] Implanted:Qty: 1 on 09/10/2023 by Bogdan Michael MD at [facility] N/A: Spine Medtronic Spine/Ortho [id number] / / Barbara Lmbr 70x5.5mm Solera 5.5/6 Cvd Titnm - [id number] Implanted:Qty: 1 on 09/10/2023 by Bogdan Michael MD at [facility] N/A: Spine Medtronic Spine/Ortho [id number] / / Barbara Lmbr 50x5.5mm Solera 5.5/6 Cvd Titnm - [id number] Implanted:Qty: 1 on 09/10/2023 by Bogdan Michael MD at [facility] N/A: Spine Medtronic Spine/Ortho [id number] / / Explanted Type Area Aromatherapist Device Identifier Shelf Expiration Date Model / Serial / Lot Explant Explanted:Qty: 8 on 09/10/2023 at [facility] N/A: Spine Description:BARBARA X2 SCREW X3 [...] Report is available in patient chart at [facility]. Edgardo [facility] * ANTI HIV 1/2 (01/06/2022 7:29 AM CDT) HIV-1/HIV-2 ANTIBODY Non-Reacti ve Non-Reacti ve 01/06/2022 11:11 AM CDT [facility] Comment:HIV-1 p24 and HIV-1/ HIV-2 Ab not detected. Blood BLOOD SPECIMEN / Unknown Venipuncture / Unknown 01/06/2022 7:29 AM CDT 01/06/2022 8:14 AM CDT Jefe Sam MD SEND OUTS [facility] [address] [place] [address], * Lipid Panel AM (01/06/2022 7:29 AM CDT) CHOLESTEROL,TOTAL 154 100 - 199 mg/dL 01/06/2022 8:51 AM CDT [facility] TRIGLYCERIDES 72 <150 mg/dL 01/06/2022 8:51 AM CDT [facility] HDL CHOLESTEROL 65 >40 mg/dL 8:51 AM CDT [facility] NON-HDL CHOLESTEROL 89 <145 mg/dl 01/06/2022 8:51 AM CDT [facility] CHOL/HDL RATIO 2.37 <4.50 01/06/2022 8:51 AM CDT [employer] [facility] LDL CHOLESTEROL 75 <=130 mg/dL 01/06/2022 8:51 AM CDT [facility] VLDL CHOLESTEROL 14 <=30 mg/dL 01/06/2022 8:51 AM CDT [facility] PROVIDER ORDERED STATUS RANDOM 01/06/2022 8:51 AM CDT [facility] Blood BLOOD SPECIMEN / Unknown Venipuncture / Unknown 01/06/2022 7:29 AM CDT 01/06/2022 8:14 AM CDT Cody David MD CHEMISTRY [facility] 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
--- OUTSIDE RECORDS SUMMARY | 2024-05-10 08:01 | XMS_ITS | Continuity of Care Document ---
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 [facility], [address], [address], [place], [id number] , [place]. tel:[phone] Referring Provider: Yoseph Grijalva, [facility] [address] [place], [address]. tel:[phone] Office/Outpa tient Visit,Est, Mod [facility], [address], [place], [place], [id number] , [place] tel: [phone] [facility] Encounter for other specified surgical aftercare 4 Panvica Edgardo. [facility], [address], [address], [place], [place], [address] , [place]. tel:[phone] Ref[facility]: [facility] [address] [place], [address]. tel:[phone] [facility], [address], [place], [place], [id number] , [place] tel: [phone] [facility] Encounter for other specified surgical aftercare 4 Michael Bogdan. [facility], [address], [address], [place], [place], [address] , [place]. [phone] Referring Provider: Yoseph Grijalva, [facility] [address] [place], [address]. [phone] [facility], [address], [place], [place], [id number] , [place] tel: [phone] [facility] No Information 3 Panvica Edgardo. [facility], [address], [address], [place], [place], [address] , [place]. [phone] Referring [facility]: [facility] [address] [place], [address]. tel:[phone] [facility], [address], [place], [place], [id number] , [place] tel:[phone] [facility] No Information 3 Michael Bogdan. [facility], [address], [address], [place], [place], [address] , [place]. tel:[phone] [facility], [address], [place], [id number] , [place] tel: [phone] [facility] No Information 3 Michael Bogdan. [facility], [address], [address], [facility] [place], [id number] , [place]. tel:[phone] Referring [facility]: [facility] [address] [place], [address]. tel:[phone] Office/Outpa tient Visit,Est, Mod [facility], [address], [facility] [place], [address] , [place] tel:[phone] [facility] Encounter for other specified surgical aftercare 0 3 Michael Bogdan. [facility], [address], [address], [place], [place], [address] , [place]. tel:[phone] Referring Provider: Yoseph Grijalva, [facility] [address] [place], [address]. tel:[phone] [facility], [address], [facility] [place], [address] , [place] [phone] [facility] Encounter for other specified surgical aftercare 0 2 3 Michael Bogdan. [facility], [address], [address], [place], [place], [address] , [place]. tel: [phone] Referring Provider: Yoseph Grijalva, [facility] [address] [place], [address]. tel:[phone] [facility], [address], [facility] [place], [id number] , [place] [phone] [facility] Encounter for other specified surgical aftercare Oct- 3 Michael Bogdan. [facility], [address], [address], [place], [place], [address] , [place]. tel: [phone] Referring Provider: Yoseph Grijalva, [facility] [address] [place], [address]. tel:[phone] [facility], [address], [place], [place], [id number] , [place] tel: [phone] [facility] No Information 2 Panvica Edgardo. [facility], [address], [address], [place], [place], [address] , [place]. tel: [phone] Referring [facility]: [facility] [address] [place], [address]. tel:[phone] [facility], [address], [place], [place], [address] , [place] tel: [phone] [facility] No Information 2 Michael Bogdan. [facility], [address] [place] [address], [address], [place], [place], [address] , [place]. tel:[phone] Referring [facility]: [facility] [address] [place], [address]. tel:[phone] Office/Outpa tient Visit,Est, Mod [facility], [address], [place], [place], [address] , [place] tel: [phone] [facility] Other idiopathic scoliosis, lumbar region 2 Michael Bogdan. [facility], [address], [address], [place], [place], [address] , [place]. tel:[phone] Referring Provider: [facility] [address] [place], [address]. [phone] Office/Outpa tient Visit,Est, Mod [facility], [address], [place], [place], [address] , [place] tel: [phone] [facility] Other idiopathic scoliosis, lumbar regionCurvature of spineSpinal stenosis, lumbar region with neurogenic claudicationSpin al stenosis, lumbosacral region 2 Michael Bogdan. [facility], [address], [address], [place], [place], [address] , [place]. tel:[phone] Referring Provider: Yoseph Grijalva, [facility] [address] [place], [address]. tel:[phone] Office/Outpa tient Visit,Est, Mod [facility], [address], [place], [place], [address] , [place] [phone] [facility] Other forms of scoliosis, lumbar regionOther forms of scoliosis, thoracic region Dec- 1 Michael Bogdan. [facility], [address], [address], [place], [place], [address] , [place]. tel:[phone] Referring Provider: Yoseph Grijalva, [facility] [address] [place], [address]. tel:[phone] Office/Outpa tient Visit,New, Mod [facility], [address], [place], [place], [address] , [place] tel:[phone] [facility] [place] Other forms of scoliosis, thoracic regionOther forms of scoliosis, lumbar region Fe 1 Panvica Edgardo. [facility], [address] [place] [address], [address], [place], [place], [address] , [place]. tel:[phone] Referring Provider: Yoseph Grijalva, [facility] [address] [place], [address]. tel:[phone] Family History Family Member Type Diagnosis Age At Onset No Information Payers Payer name Insurance type Covered libertarian ID Authornoemia tipaz(s) [facility] [id number] [facility] [id number] Social History Type Description Quantity Date Captured [...]
== END 2024-05-10 07:59 | disposition home or self-care (01) ==
LOC: RAD 07:59
PROVIDERS: PCP Family Medicine; Visit Provider Family Medicine
DX: I50.9 Heart failure, unspecified (principal); I34.0 Nonrheumatic mitral (valve) insufficiency; I42.9 Cardiomyopathy, unspecified
CPT/HCPCS: 93306

== ENCOUNTER 2024-07-27 10:37 | Outpatient (CLI) | payer BC, SELFPAY ==
--- OUTSIDE RECORDS SUMMARY | 2024-07-27 10:42 | XMS_ITS | Clinical Summary ---
Author Organization [facility] Address [place], [place] [address] Care Team Providers Care Mold Engraver Name Role Phone Ralph Bear MD Primary Care Provider + [facility] [place] Unavailable Allergies Active Allergy Reactions Criticality Noted Date Comments Blood-Group Specific Substance Other - Describe In Comment Field 09/14/2023 Patient has an Anti-Big E, Anti-Jkb, Anti-little s and Non Specific antibody. Blood products may be delayed. Draw patient 24 hours prior to transfusion. For [facility] testing, draw one red top and two purple top tubes for all Type and Screen orders. Medications Medication Sig Dispensed Refills Start Date End Date Status sildenafil citrate (VIAGRA) 100 mg tablet Take 50-100 mg by mouth once daily if needed for Erectile Dysfunction. Active buprenorphine-naloxo ne, 8 mg-2 mg, (SUBOXONE) (8-2 mg/tablet) sublingual tablet Place 3 Tablets under the tongue once daily. Active acetaminophen (TYLENOL EXTRA STRGTH) 500 mg tabletIndications:Sp inal stenosis of lumbosacral region Take 2 Tablets (1,000 mg) by mouth three times daily. Max acetaminophen dose: 4000mg in 24 hrs. 60 Tablet 09/13/2023 Active methocarbamoL (ROBAXIN) 750 mg tabletIndications:Ac renato postoperative pain Take 1 Tablet (750 mg) by mouth every 6 hours. 20 Tablet 09/13/2023 Active oxyCODONE (ROXICODONE) 5 mg immediate release tabletIndications:Ac renato postoperative pain Take 1-3 Tablets (5-15 mg) by mouth every 4 hours if needed for Pain. 20 Tablet 09/13/2023 Active valsartan (DIOVAN) 40 mg tabletIndications:No nischemic dilated cardiomyopathy (HC),HTN (hypertension) Take 1 Tablet (40 mg) by mouth two times daily. No further refills until seen by cardiology. Please call [phone] to schedule an appointment. 60 Tablet 06/14/2024 Active carvediloL (COREG) 6.25 mg tabletIndications:No nischemic dilated cardiomyopathy (HC),HTN (hypertension) Take 1 Tablet (6.25 mg) by mouth two times daily. No further refills until seen by cardiology. Please call [phone] to schedule an appointment. 60 Tablet 06/14/2024 Active Active Problems Problem Noted Date Diagnosed Date Idiopathic scoliosis in adult patient 09/10/2023 Methamphetamine abuse in remission 09/10/2023 Opioid dependence in remission 09/10/2023 Spinal stenosis of lumbosacral region 09/10/2023 Acute postoperative pain 09/10/2023 Nonischemic dilated cardiomyopathy 05/02/2023 Overview (05/02/2023): 01/2022: In the setting of past alcohol and methamphetamine abuse and current tobacco abuse. Initially with HFrEF. Responded well to therapy and left ventricular ejection fraction normalized. Follows with I. Chronic pain 05/02/2023 Hypovolemia associated with diuresis [...] kidney injury) 05/01/2023 Pain medication agreement 09/19/2013 Overview (09/19/2013): Suboxone Neck pain 03/06/2013 05/01/2023 Lumbago 05/09/2007 05/01/2023 Degeneration of lumbar or esthela mbosacral intervertebral disc 05/09/2007 05/02/2023 Acute systolic heart failure 05/01/2023 Spinal stenosis of lumbosacral region 05/02/2023 DDD (degenerative disc disease), lumbosacral 05/01/2023 Idiopathic scoliosis in adult patient 05/02/2023 Encounters Date Type Department Care Team Description [facility] [address] [place] [address] Jefe Parmar MBChB Refill Request (Carvedilol, Valsartan) 06/14/2024 [facility]ill [facility] [address] [place] [address] Jefe Parmar MBChB Refill Request (Valsartan, Carvedilol) 05/10/2024 8:00 AM CDT Ancillary Procedure [place] [facility] [place] [facility] & [address] [address] 05/10/2024 Travel from Last 3 Months Immunizations Name Administration [...] Comments Blood Pressure 130/91 09/13/2023 8:37 AM SOLAR ENERGY ADVISOR Pulse 70 09/13/2023 8:37 AM SOLAR ENERGY ADVISOR Temperature 37.2 ??C (99 ??F) 09/13/2023 8:37 AM SOLAR ENERGY ADVISOR Respiratory Rate 16 09/13/2023 8:37 AM SOLAR ENERGY ADVISOR Oxygen Saturation 96% 09/13/2023 8:37 AM SOLAR ENERGY ADVISOR Inhaled Oxygen Concentration - - Weight 81.1 kg (178 lb 14.4 oz) 09/10/2023 7:10 AM SOLAR ENERGY ADVISOR Height 195.6 cm (6' 5) 09/10/2023 7:10 AM SOLAR ENERGY ADVISOR Body Mass Index 21.21 09/10/2023 7:10 AM SOLAR ENERGY ADVISOR Plan of Treatment Health Maintenance Due Date Last Done Comments Hepatitis C screening for age 18-79 1988 Colonoscopy through age 75 2015 Zoster (shingles) series for age 50+ (1 of 2) 2020 BMI (ht and wt on same day) for age 18+ 04/20/2023 04/20/2022, 03/27/2022, 01/16/2022 Depression screening for age 12+ 04/24/2023 04/24/2022, 04/22/2022, 02/02/2022, Additional history exists COVID-19 vaccine series (2023- season) 2024 08/24/2021, 08/03/2021 Influenza for age 50-64 06/04/2024 09/02/2022, 09/25 Lipids for age 45-75 01/06/2027 01/06/2022, 09/05/2012, 04/20/2011, Additional history exists Tetanus booster 10/15/2030 10/15/2020, 09/22/2012 Pneumococcal series for age 6-64 Aged Out 09/22/2012 No longer eligible based on patient's age to complete this topic Tdap Completed 10/15/2020, 09/22/2012 HIV for age 15-65 Completed 01/06/2022 Medical Devices Implanted Type Area Wild Animal Caretaker Device Identifier Shelf Expiration Date Model / Serial / Lot [id number] one Matrix 1x10cm [place] Strip Dbm Implanted:Qty: 1 on 09/11/2022 by Bogdan Michael MD at [facility] Explanted:at [facility] (Quantity not on file) N/A: Spine Medtronic Spine/Ortho 10/10/2024 [id number] / [id number] / Screw Lmbr Post 7.5x40mm Solera 5.5/6 Va Cocr - [id number] Implanted:Qty: 2 on 09/11/2022 by Bogdan Michael MD at [facility] N/A: Spine Medtronic Spine/Ortho [id number] / / Screw Lmbr Post 7.5x45mm Solera 5.5/6 Va Cocr - [id number] Implanted:Qty: 3 on 09/11/2022 by Bogdan Michael MD at [facility] N/A: Spine Medtronic Spine/Ortho [id number] / / Barbara Lmbr 500x5.5mm Solera 5.5/6 Stra Titnm Alloy - [id number] Implanted:Qty: 2 on 09/11/2022 by Bogdan Michael MD at [facility] N/A: Spine Medtronic Spine/Ortho [id number] / / Screw Lmbr Post 6.5x45mm Solera 5.5/6 Va Cocr - [id number] Implanted:Qty: 8 on 09/11/2022 by Bogdan Michael MD at [facility] N/A: Spine Medtronic Spine/Ortho [id number] / / Set Screw Lmbr Std Barbara Connection Titnm - [id number] Implanted:Qty: 1 on 09/11/2022 by Bogdan Michael MD at [facility] N/A: Spine Medtronic Spine/Ortho [id number] / / Screw Lmbr 5.5x25mm Endo Skeleton Tas Bone Alif Stand Alone - [id number] Implanted:Qty: 3 on 09/11/2022 by Bogdan Michael MD at [facility] N/A: Spine Medtronic Spine/Ortho [id number] / / Screw Lmbr 5.5x30mm Endo Skeleton Tas Bone Alif Stand Alone - [id number] Implanted:Qty: 2 on 09/11/2022 by Bogdan Michael MD at [facility] N/A: Spine Medtronic Spine/Ortho [id number] / / Screw Lmbr 6.5x30mm Endo Skeleton Tas Bone Alif Stand Alone - [id number] Implanted:Qty: 3 on 09/11/2022 by Bogdan Michael MD at [facility] N/A: Spine Medtronic Spine/Ortho [id number] / / Bone Matrix Lg Infuse Bmp - [id number] Implanted:Qty: 1 on 09/11/2022 by Bogdan Michael MD at [facility] N/A: Spine Medtronic Spine/Ortho 10/03/2024 [id number] / / [id number] Screw Bs Cncmas 9.5x80 T/C Implanted:Qty: 2 on 09/11/2022 by Bogdan Michael MD at [facility] N/A: Spine [id number] / / Description:SCREW BS CNCMAS 9.5X80 T/C [id number] one Matrix 1x10cm [place] Strip Dbm Implanted:Qty: 1 on 09/11/2022 by Bogdan Michael MD at [facility] Explanted:at [facility] (Quantity not on file) N/A: Spine Medtronic Spine/Ortho 11/23/2024 [id number] / [id number] / Connector 5/6-6.0 Clsd Lat 25 Implanted:Qty: 1 on 09/11/2022 by Bogdan Michael MD at [facility] N/A: Spine [id number] / / Description:CONNECTOR 5/6-6. 0 CLSD LAT 25 Lillie Spacer Tas 7 Dg Lg 12mm Implanted:Qty: 1 on 09/11/2022 by Bogdan Michael MD at [facility] N/A: Spine 11/14/2026-N / / [id number] Description:LILLIE SPACER TAS 7 DG LG 12MM Lillie Spacer Tas 12dg Lg 14mm Implanted:Qty: 1 on 09/11/2022 by Bogdan Michael MD at [facility] N/A: Spine 11/25/2025-N / / [id number] Description:LILLIE SPACER TAS 12DG LG 14MM Lillie Spacer Tas 12dg Lg 16mm Implanted:Qty: 1 on 09/11/2022 by Bogdan Michael MD at [facility] N/A: Spine 04/08/2026-N / / [id number] Description:LILLIE SPACER TAS 12DG LG 16MM Lillie Spacer Tas 12dg Lg 16mm Implanted:Qty: 1 on 09/11/2022 by Bogdan Michael MD at [facility] N/A: Spine 09/03/2026-N / / [id number] Description:LILLIE SPACER TAS 12DG LG 16MM [id number] one Matrix 1x10cm [place] Strip Dbm Implanted:Qty: 1 on 09/11/2022 by Bogdan Michael MD at [facility] Explanted:at [facility] (Quantity not on file) N/A: Spine Medtronic Spine/Ortho 11/30/2024 [id number] / [id number] / [id number] one 1-4mm 90cc Medtronic Chips Canclls Freeze Dried Implanted:Qty: 1 on 09/11/2022 by Bogdan Michael MD at [facility] Explanted:at [facility] (Quantity not on file) N/A: Spine Medtronic Spine/Ortho 09/28/2026 [id number] / [id number] / [id number] one 1-4mm 90cc Medtronic Chips Canclls Freeze Dried Implanted:Qty: 1 on 09/11/2022 by Bogdan Michael MD at [facility] Explanted:at [facility] (Quantity not on file) N/A: Spine Medtronic Spine/Ortho 09/28/2026 [id number] / [id number] / [id number] one 1-4mm 30cc Medtronic Chips Canclls Freeze Dried Implanted:Qty: 1 on 09/11/2022 by Bogdan Michael MD at [facility] Explanted:at [facility] (Quantity not on file) N/A: Spine Medtronic Spine/Ortho 07/21/2026 [id number] / [id number] / [id number] one 1-4mm 90cc Medtronic Chips Canclls Freeze Dried Implanted:Qty: 1 on 09/11/2022 by Bogdan Michael MD at [facility] Explanted:at [facility] (Quantity not on file) N/A: Spine Medtronic Spine/Ortho 09/30/2026 [id number] / [id number] / [id number] one 1-4mm 90cc Medtronic Chips Canclls Freeze Dried Implanted:Qty: 1 on 09/11/2022 by Bogdan Michael MD at [facility] Explanted:at [facility] (Quantity not on file) N/A: Spine Medtronic Spine/Ortho 10/01/2026 [id number] / [id number] / Set Screw Lmbr Ant 5.5mm Solera Break Off - [id number] Implanted:Qty: 15 on 09/11/2022 by Bogdan Michael MD at [facility] N/A: Spine Medtronic Spine/Ortho [id number] / / Bone 1-4mm 60cc Medtronic Fine Canclls Freeze Dried - [id number] Implanted:Qty: 1 on 09/10/2023 by Bogdan Michael MD at [facility] N/A: Spine Medtronic Spine/Ortho 01/01/2027 [id number] / [id number] / Cnnctr Lmbr 5.5x5.5mm Barbara Connect Variable Titnm Dar - [id number] Implanted:Qty: 4 on 09/10/2023 by Bogdan Michael MD at [facility] N/A: Spine Medtronic Spine/Ortho [id number] / / Set Screw Lmbr Std Barbara Connection Titnm - [id number] Implanted:Qty: 8 on 09/10/2023 by Bogdan Michael MD at [facility] N/A: Spine Medtronic Spine/Ortho [id number] / / Set Screw Lmbr Ant 5.5mm Solera Break Off - [id number] Implanted:Qty: 2 on 09/10/2023 by Bogdan Michael MD at [facility] N/A: Spine Medtronic Spine/Ortho [id number] / / Barbara Lmbr 110x5.5mm Solera 5.5/6 Cvd Titnm - [id number] Implanted:Qty: 1 on 09/10/2023 by Bogdan Michael MD at [facility] N/A: Spine Medtronic Spine/Ortho [id number] / / Barbara Lmbr 90x5.5mm Solera 5.5/6 Cvd Titnm - [id number] Implanted:Qty: 1 on 09/10/2023 by Bogdan Michael MD at [facility] N/A: Spine Medtronic Spine/Ortho [id number] / / Barbara Lmbr 70x5.5mm Solera 5.5/6 Cvd Titnm - [id number] Implanted:Qty: 1 on 09/10/2023 by Bogdan Michael MD at [facility] N/A: Spine Medtronic Spine/Ortho [id number] / / Barbara Lmbr 50x5.5mm Solera 5.5/6 Cvd Titnm - [id number] Implanted:Qty: 1 on 09/10/2023 by Bogdan Michael MD at [facility] N/A: Spine Medtronic Spine/Ortho [id number] / / Explanted Type Area Wild Animal Caretaker Device Identifier Shelf Expiration Date Model / Serial / Lot Explant Explanted:Qty: 8 on 09/10/[address] [facility] N/A: Spine Description:BARBARA X2 SCREW X3 SET SCREW X3 Procedures Procedure Name Priority Date/Time Associated Diagnosis Comments ECHO TTE COMPLETE WO CONTRAST Routine 05/10/2024 8:46 AM CDT Heart failure, unspecified (HC) ANTI HIV 1/2 JORDYN 01/06/2022 7:29 AM CDT LIPID PANEL Early AM 01/06/2022 7:29 AM CDT from Last 3 Months or Most Recently Relevant to Health Maintenance Results * ECHO TTE COMPLETE WO CONTRAST (05/10/2024 8:46 AM CDT) AORTIC VALVE MEAN PG 5 mmHg EJECTION FRACTION 49 % LVEDD 5.7 cm MITRAL VALVE MR ERO 26 mm2 EJECTION FRACTION 50 - 55% Anatomical Region Laterality Modality Ultrasound 05/10/2024 8:13 AM CDT Narrative 05/10/2024 9:06 AM CDT ECHOCARDIOGRAM HERACLIO NESBITT ? Accession#: ?? [id number] : ?1970 53 years Study Date: ?? 05/10/2024 8:13:28 AM Gender: M ?BP: ? 93/57 mmHg Height: 196.00 cm ?BSA: ?2.13 m? ? ? Weight: 81.00 kg ? Tech: ? MSR ? Referring MD: RALPH BEAR Site: ? [facility] Reading Location: Mobile OP Patient Location: Outpatient. Procedure: 2D, Color Doppler and Spectral Doppler. Indication for study: Heart failure, unspecified Cardiac Rhythm: Regular and with premature ventricular contractions.Study quality: Good. Final Impressions: 1. Mild to moderately increased LV size, normal wall thickness, mildly reduced global systolic function with an estimated EF of 50 - 55%. 2. The mitral valve is normal, mild mitral regurgitation. 3. No pericardial effusion. Comparison Compared to prior exam images and report of 06/22/23: - LV function is low normal in the context of frequent PVCs. Chamber Sizes and Function Mild to moderately increased left ventricular size, normal wall thickness, mildly reduced global systolic function with an estimated EF of 50 - 55%. Left atrial size is normal. Right ventricular cavity size is normal, global systolic RV function is normal. The right atrium is normal. The pulmonary artery is of normal size and origin. The sinus of Valsalva is normal sized. The ascending aorta is normal sized. Valves, RV Pressures and Diastolic Function The aortic valve is trileaflet, no stenosis and no regurgitation. The mitral valve is normal in structure, mild mitral regurgitation. Normal diastolic function. The tricuspid valve is normal in structure. Tricuspid regurgitation is regurgitation is not evident. The pulmonic valve is normal. No pulmonary regurgitation. Masses, Effusion, Shunts There is no pericardial effusion. The inferior vena cava is normal sized, respiratory size variation greater than 50%. No left to right shunting was detected by limited color flow Doppler interrogation of the interatrial septum. MEASUREMENTS AND CALCULATIONS 2-D Measurements and LV Function: LVID (d) 5.7 cm LV FS% (2D) ?? 20 % LVID (s) 4.6 cm LVOT diameter 2.4 cm IVS (d) ??0.9 cm HR ?64 bpm LVPW (d) 0.8 cm LA Vol index ??31 ml/m2 Ao Sinus 3.7 cm RV Max 4C (d) 5.0 cm Asc Ao ?? 3.6 cm Diastology: Mitral ?Tissue Doppler E Peak 1.1 m/s ??e', Septum ? 0.09 m/s A Peak 1.0 m/s ??e', Lateral ?0.06 m/s E/A ?1.1 ?E/e' Average ?? 14.04 DT ? 213 msec Aortic Valve: Vmax ? 1.4 m/s ??NANO (V) ?? 4.15 cm? ? ? VTI ?0.32 m ?? NANO (I) ?? 3.80 cm? ? ? LVOT V max 1.3 m/s ??Max PG ?8 mmHg LVOT VTI ?? 0.27 m ?? Mean PG ?? 5 mmHg SV ? 122 ml ?? Dim Index 0.83 SV index ?? 57 ml/m? ? ? CO ?7.8 l/min ?CI ?3.7 l/min/m? ? ? Mitral Valve: MVA ? 3.6 cm? ? ? MR ERO ??0.26 cm? ? ? MV P 1/2 ??62 msec MR Vol. 39 ml MV Mean G 2 mmHg ??MR TVI ??1.53 m MV VTI ?0.32 m Tricuspid Valve and estimated PA pressures: TAPSE 2.7 cm . This study was interpreted by an [facility] accredited facility. ??Final ?? Procedure Note Ralph Katz MD - 05/10/2024 ECHOCARDIOGRAM HERACLIO NESBITT : 1970 53 years Study Date: 05/10/2024 8:13:28 AM Gender: M BP: 93/57 mmHg Height: 196.00 cm BSA: 2.13 m? ? ? Weight: 81.00 kg Tech: [facility] [place] Referring MD: RALPH BEAR Site: [facility] Reading Location: Mobile OP Patient Location: Outpatient. Procedure: 2D, Color Doppler and Spectral Doppler. Indication for study: Heart failure, unspecified Cardiac Rhythm: Regular and with premature ventricular contractions.Studyquality: Good. Final Impressions: 1. Mild to moderately increased LV size, normal wall thickness, mildlyreduced global systolic function with an estimated EF of 50 - 55%. 2. The mitral valve is normal, mild mitral regurgitation. 3. No pericardial effusion. Comparison Compared to prior exam images and report of 06/22/23: - LV function is low normal in the context of frequent PVCs. Chamber Sizes and Function Mild to moderately increased left ventricular size, normal wall thickness,mildly reduced global systolic function with an estimated EF of 50 - 55%.Left atrial size is normal. Right ventricular cavity size is normal,global systolic RV function is normal. The right atrium is normal. Thepulmonary artery is of normal size and origin. The sinus of Valsalva isnormal sized. The ascending aorta is normal sized. Valves, RV Pressures and Diastolic Function The aortic valve is trileaflet, no stenosis and no regurgitation. Themitral valve is normal in structure, mild mitral regurgitation. Normaldiastolic function. The tricuspid valve is normal in structure. Tricuspidregurgitation is regurgitation is not evident. The pulmonic valve isnormal. No pulmonary regurgitation. Masses, Effusion, Shunts There is no pericardial effusion. The inferior vena cava is normal sized,respiratory size variation greater than 50%. No left to right shunting wasdetected by limited color flow Doppler interrogation of the interatrialseptum. MEASUREMENTS AND CALCULATIONS 2-D Measurements and LV Function: LVID (d) 5.7 cm LV FS% (2D) 20 % LVID (s) 4.6 cm LVOT diameter 2.4 cm IVS (d) 0.9 cm HR 64 bpm LVPW (d) 0.8 cm LA Vol index 31 ml/m2 Ao Sinus 3.7 cm RV Max 4C (d) 5.0 cm Asc Ao 3.6 cm Diastology: Mitral Tissue Doppler E Peak 1.1 m/s e', Septum 0.09 m/s A Peak 1.0 m/s e', Lateral 0.06 m/s E/A 1.1 E/e' Average 14.04 DT 213 msec Aortic Valve: Vmax 1.4 m/s NANO (V) 4.15 cm? ? ? VTI 0.32 m NANO (I) 3.80 cm? ? ? LVOT V max 1.3 m/s Max PG 8 mmHg LVOT VTI 0.27 m Mean PG 5 mmHg SV 122 ml Dim Index 0.83 SV index 57 ml/m? ? ? CO 7.8 l/min CI 3.7 l/min/m? ? ? Mitral Valve: MVA 3.6 cm? ? ? MR ERO 0.26 cm? ? ? MV P 1/2 62 msec MR Vol. 39 ml MV Mean G 2 mmHg MR TVI 1.53 m MV VTI 0.32 m Tricuspid Valve and estimated PA pressures: TAPSE 2.7 cm . This study was interpreted by an [facility] accredited facility. Final Ralph Bear MD ECHO ORD * ANTI HIV 1/2 (01/06/2022 7:29 AM CDT) HIV-1/HIV-2 ANTIBODY Non-Reacti ve Non-Reacti ve 01/06/2022 11:11 AM CDT [facility] Comment:HIV-1 p24 and HIV-1/ HIV-2 Ab not detected. Blood BLOOD SPECIMEN / Unknown Venipuncture / Unknown 01/06/2022 7:29 AM CDT 01/06/2022 8:14 AM CDT Jefe Sam MD SEND OUTS [facility] [address] [place] [address], * Lipid Panel AM (01/06/2022 7:29 AM CDT) CHOLESTEROL,TOTAL 154 100 - 199 mg/dL 01/06/2022 8:51 AM CDT [facility] TRIGLYCERIDES 72 <150 mg/dL 01/06/2022 8:51 AM CDT [facility] HDL CHOLESTEROL 65 >40 mg/dL 8:51 AM CDT [facility] NON-HDL CHOLESTEROL 89 <145 mg/dl 01/06/2022 8:51 AM CDT [facility] CHOL/HDL RATIO 2.37 <4.50 01/06/2022 8:51 AM CDT [facility] LDL CHOLESTEROL 75 <=130 mg/dL 01/06/2022 8:51 AM CDT [facility] VLDL CHOLESTEROL 14 <=30 mg/dL 01/06/2022 8:51 AM CDT [facility] PROVIDER ORDERED STATUS RANDOM 01/06/2022 8:51 AM CDT [facility] Blood BLOOD SPECIMEN / Unknown Venipuncture / Unknown 01/06/2022 7:29 AM CDT 01/06/2022 8:14 AM CDT Cody David MD CHEMISTRY [facility] [address] [place] [address], from Last 3 Months or Most Recently Relevant to Health Maintenance Advance Directives Documents on File Type Date Recorded Patient Paperhanger Assistant Expl anation Power of Recreation Therapy Teacher 03/04/2022 03/04/2022 Healthcare Directive 03/04/2022 022 * [...] Comments Code Status Discussion: Other Care Teams Mold Engraver Relationship Specialty Start Date End Date Ralph Bear MD [address] [place] [id number] PCP - General Family Practice 02/02/[address] [address] 09/13/23
--- OUTSIDE RECORDS SUMMARY | 2024-07-27 10:42 | XMS_ITS | Continuity of Care Document ---
Author Organization [facility] Address [address] [place] [address] Phone Care Team Providers Care V[facility] Cardiovascular Service Line Name Role Phone Mayank PAULA Edgardo Unavailable [...] [facility], [address], [place], [id number] , [place] tel:[phone] [facility] Encounter for other specified surgical aftercare 4 Mayank Reynoso. [facility], [address], [address], [place], [id number] , [place]. tel:[phone] Referring Provider: Yoseph Grijalva, [facility] [address] [place], [address]. tel:[phone] Office/Outpa tient Visit,Est, Mod [facility], [address], [place], [place], [id number] , [place] tel: [phone] [facility] Encounter for other specified surgical aftercare 4 Panvica Edgardo. [facility], [address], [address], [place], [place], [id number] , [place]. tel:[phone] Referring Provider: [facility] [place] [address] [place], [address]. tel:[phone] [facility], [address], [place], [place], [id number] , [place] tel: [phone] [facility] Encounter for other specified surgical aftercare 4 Michael Bogdan. [facility], [address], [address], [place], [place], [id number] , [place]. [phone] Referring Provider: Yoseph Grijalva, [facility] [address] [place], [address]. [phone] [facility], [address], [place], [place], [id number] , [place] tel: [phone] [facility] No Information 3 Panvica Edgardo. [facility], [address], [address], [place], [place], [address] , [place]. [phone] Referring Provider: [facility] [place] [address] [place], [address]. tel:[phone] [facility], [address], [place], [place], [address] , [place] tel:[phone] [facility] No Information 3 Michael Bogdan. [facility], [address], [address], [place], [place], [address] , [place]. tel:[phone] [facility], [address], [place], [id number] , [place] tel: [phone] [facility] No Information 3 Michael Bogdan. [facility], [address], [address], [facility] [place], [id number] , [place]. tel:[phone] Referring Provider: [facility] [place] [address] [place], [address]. tel:[phone] Office/Outpa tient Visit,Est, Mod [facility], [address], [facility] [place], [id number] , [place] tel:[phone] [facility] Encounter for other specified surgical aftercare 0 3 Michael Bogdan. [facility], [address], [address], [place], [place], [id number] , [place]. tel:[phone] Referring Provider: Yoseph Grijalva, [facility] [address] [place], [address]. tel:[phone] [facility], [address], [facility] [place], [id number] , [place] [phone] [facility] Encounter for other specified surgical aftercare 0 2 3 Michael Bogdan. [facility], [address], [address], [place], [place], [address] , [place]. [phone] Referring Provider: Yoseph Grijalva, [facility] [address] [place], [address]. tel:[phone] [facility], [address], [facility] [place], [id number] , [place] [phone] [facility] Encounter for other specified surgical aftercare Oct- 3 Michael Bogdan. [facility], [address], [address], [place], [place], [address] , [place]. tel: [phone] Referring Provider: Yoseph Grijalva, [facility] [address] [place], [address]. tel:[phone] [facility], [address], [place], [place], [address] , [place] tel: [phone] [facility] No Information 2 Panvica Edgardo. [facility], [address], [address], [place], [place], [address] , [place]. tel: [phone] Referring Provider: [facility] [place] [address] [place], [address]. tel:[phone] [facility], [address], [place], [place], [id number] , [place] tel: [phone] [facility] No Information 2 Michael Bogdan. [facility], [address] [place] [address], [address], [place], [place], [address] , [place]. tel:[phone] Referring Provider: [facility] [place] [address] [place], [address]. tel:[phone] Office/Outpa tient Visit,Est, Mod [facility], [address], [place], [place], [address] , [place] tel: [phone] [facility] Other idiopathic scoliosis, lumbar region 2 Michael Bogdan. [facility], [address], [address], [place], [place], [address] , [place]. tel:[phone] Referring Provider: [facility] [place] [address] [place], [address]. [phone] Office/Outpa tient Visit,Est, Mod [facility], [address], [place], [place], [address] , [place] tel: [phone] [facility] Other idiopathic scoliosis, lumbar regionCurvature of spineSpinal stenosis, lumbar region with neurogenic claudicationSpin al stenosis, lumbosacral region 2 Michael Bogdan. [facility], [address], [address], [place], [place], [address] , [place]. tel:[phone] Referring Provider: Yoseph Grijalva, [facility] [address] [place], [address]. tel:[phone] Office/Outpa tient Visit,Est, Mod [facility], [address], [place], [place], [address] , [place] [phone] [facility] Other forms of scoliosis, lumbar regionOther forms of scoliosis, thoracic region Dec- 1 Michael Bogdan. [facility], [address], [address], [place], [place], [address] , [place]. tel:[phone] Referring Provider: Yoseph Grijalva, [facility] [address] [place], [address]. tel:[phone] Office/Outpa tient Visit,New, Mod [facility], [address], [place], [place], [address] , [place] tel:[phone] [facility] Other forms of scoliosis, thoracic regionOther forms of scoliosis, lumbar region Fe 1 Panvica Edgardo. [facility], [address] [place] [address], [address], [place], [place], [address] , [place]. tel:[phone] Referring Provider: Yoseph Grijalva, [facility] [address] [place], [address]. tel:[phone] Family History Family Member Type Diagnosis Age At Onset No Information Payers Payer name Insurance type Covered libertarian ID Authornoemia tipaz(s) [facility] [id number] [facility] [id number] Social History Type Description Quantity Date Captured [...]
== END 2024-07-27 10:38 | disposition home or self-care (01) ==
LOC: FBOREF 10:38
PROVIDERS: PCP Family Medicine; Visit Provider Family Medicine
DX: I10 Essential (primary) hypertension (principal); R79.89 Other specified abnormal findings of blood chemistry; I50.9 Heart failure, unspecified
CPT/HCPCS: 80048; 84403

== ENCOUNTER 2024-11-06 09:08 | Outpatient (CLI) | payer BC, SELFPAY | END 2024-11-06 09:09 | disposition home or self-care (01) | PROVIDERS: PCP Family Medicine; Visit Provider Family Medicine | DX: I10 Essential (primary) hypertension (principal); R79.89 Other specified abnormal findings of blood chemistry; I42.9 Cardiomyopathy, unspecified; I50.9 Heart failure, unspecified | CPT/HCPCS: 80048; 80076; 83880; 85025 ==

== ENCOUNTER 2024-12-01 09:20 | Outpatient (CLI) | payer BC, SELFPAY | END 2024-12-01 09:21 | disposition home or self-care (01) | LOC: NFLDREF 12-04 01:45 | PROVIDERS: PCP Family Medicine; Referring Provider Family Medicine; Visit Provider Family Medicine | DX: R79.89 Other specified abnormal findings of blood chemistry (principal); F10.20 Alcohol dependence, uncomplicated; I50.9 Heart failure, unspecified; I42.9 Cardiomyopathy, unspecified; R06.02 Shortness of breath | CPT/HCPCS: 80076; 84403 ==

== ENCOUNTER 2025-06-26 11:31 | Outpatient (CLI) | payer BC, SELFPAY | END 2025-06-26 11:32 | disposition home or self-care (01) | PROVIDERS: PCP Family Medicine; Visit Provider Family Medicine | DX: K35.32 Acute appendicitis with perforation, localized peritonitis, and gangrene, without abscess (principal) | CPT/HCPCS: 80048; 85025 ==